=== PATIENT | male | born 1980 | race Caucasian/White ===

== ENCOUNTER 2018-09-15 13:22 | Emergency (ER) | payer BC ==
[2018-09-15 15:15] VITALS: BP 150/105
--- NOTE | 2018-09-15 15:52 | CRLUS ---
INDICATION: Left leg swelling TECHNIQUE: A compression venous ultrasound exam was performed of the left lower extremity using thapa-scale imaging, color Doppler and spectral Doppler analysis. FINDINGS: Sonographic imaging of the left lower extremity demonstrates normal compressibility and color Doppler venous blood flow within the common femoral vein, deep femoral vein, and the proximal greater saphenous vein. Within the thigh, the femoral vein is patent and compressible. At a lower level, the popliteal and posterior tibial veins also show normal compressibility and color Doppler venous blood flow. Limited imaging of the contralateral groin demonstrates a normal spectral waveform and color Doppler venous blood flow within the right common femoral vein. Mildly prominent left inguinal lymph node measuring 3.3 x 1.1 centimeter short axis with fatty hilum probably reactive. IMPRESSION: No evidence of deep vein thrombosis within the left lower extremity. Dictated by Nereida Cali MD @ Sep 15 2018 3:49PM Signed by Dr. Nereida Cali @ Sep 15 2018 3:51PM
--- NOTE | 2018-09-15 16:19 | EDM.PDOC ---
ED HPI GENERAL MEDICAL PROBLEM - General Chief Complaint: Lower Extremity Injury/Pain Stated Complaint: LEFT LEG SWELLING Time Seen by Provider: 09/15/18 13:25 Source of Information: Reports: Patient History Limitations: Reports: No Limitations - History of Present Illness INITIAL COMMENTS - FREE TEXT/NARRATIVE: 38 yo with hx of type 2 DM presents with concerns of left foot swelling Had chronic wound on the foot since may or june Two days ago noticed increased redness and swelling No fevers or chills Thought is may be gout but no history of this Does regularly see a doctor No hx of blood clot Left Knee Pain Score (Numeric/FACES): 3 - Related Data Allergies Allergy/AdvReac Type Severity Reaction Status Date / Time No Known Allergies Allergy Verified 09/15/18 13:39 Home Meds: Home Meds Ibuprofen [Motrin] 200 mg PO Q8H PRN 01/07/16 [History] Naproxen [Naprosyn] 500 mg PO BID PRN 01/07/16 [History] Doxycycline [Vibramycin] 100 mg PO BID 7 Days cap 09/15/18 [Rx] Past Medical History HEENT History: Reports: Otitis Media Cardiovascular History: Reports: Hypertension Psychiatric History: Reports: Anxiety, Depression Endocrine/Metabolic History: Reports: Diabetes, Type II Social & Family History - Tobacco Use Smoking Status *Q: Heavy Tobacco Smoker Years of Tobacco use: 22 Packs/Tins Daily: 1 - Recreational Drug Use Recreational Drug Use: No Review of Systems - Review of Systems Review Of Systems: See Below Constitutional: Reports: No Symptoms Eyes: Reports: No Symptoms Ears: Reports: No Symptoms Nose: Reports: No Symptoms Mouth/Throat: Reports: No Symptoms Respiratory: Reports: No Symptoms Cardiovascular: Reports: No Symptoms GI/Abdominal: Reports: No Symptoms Genitourinary: Reports: No Symptoms Musculoskeletal: Reports: Foot Pain Skin: Reports: Wound Neurological: Reports: No Symptoms Psychiatric: Reports: No Symptoms ED EXAM, GENERAL - Physical Exam Exam: See Below Course - Vital Signs Last Recorded V/S: Last Vital Signs Temp 36.8 C 09/15/18 13:45 Pulse 119 H 09/15/18 13:45 Resp 14 09/15/18 13:45 BP 150/105 H 09/15/18 13:45 Pulse Ox 97 09/15/18 13:45 - Orders/Labs/Meds Labs: Laboratory Tests 09/15/18 Range/Units 15:59 Sodium 134 L (140-148) mmol/L Potassium 4.1 (3.6-5.2) mmol/L Chloride 99 L (100-108) mmol/L Carbon Dioxide 28 (21-32) mmol/L Anion Gap 11.1 (5.0-14.0) mmol/L BUN 17 (7-18) mg/dL Creatinine 1.3 (0.8-1.3) mg/dL Est Cr Clr Drug Dosing 82.91 mL/min Estimated GFR (MDRD) > 60 (>60) Glucose 284 H (74-106) mg/dL Calcium 9.0 (8.5-10.1) mg/dL Triglycerides 192 H (15-150) mg/dL Cholesterol 277 H (0-200) mg/dL LDL Cholesterol Direct 188 H (0-100) mg/dL HDL Cholesterol 45 (40-60) mg/dL Departure - Departure Time of Disposition: 15:44 Disposition: Home, Self-Care 01 Clinical Impression: Cellulitis Qualifiers: Site of cellulitis: extremity Site of cellulitis of extremity: toe Laterality: left Qualified Code(s): L03.032 - Cellulitis of left toe - Discharge Information Prescriptions: Doxycycline [Vibramycin] 100 mg PO BID 7 Days cap Instructions: Cellulitis, Adult Referrals: PCP,None [Primary Care Provider] - Forms: ED Department Discharge Additional Instructions: Please take the prescribed antibiotic. It is very important that you follow up with a primary doctor next week. We have placed a referral for you.
[2018-09-17 10:50] LABS: HEMOGLOBIN A1C 10.9 % (4.5-6.2)
== END 2018-09-15 16:35 | disposition home or self-care (01) ==
LOC: JP.ED 13:22
DX: L03.032 Cellulitis of left toe (principal); I10 Essential (primary) hypertension; F41.9 Anxiety disorder, unspecified; F32.9 Major depressive disorder, single episode, unspecified; E11.9 Type 2 diabetes mellitus without complications; F17.210 Nicotine dependence, cigarettes, uncomplicated; Z79.899 Other long term (current) drug therapy
CPT/HCPCS: 36415; 80048; 80061; 83036; 93971-LT; 99284-25

== ENCOUNTER 2018-12-07 12:32 | Emergency (ER) | payer BC ==
[2018-12-07] MEDS ORDERED: Sodium Chloride 0.9% 10 ML Syringe FLUSH PRN (12:35)
[2018-12-07] MEDS ORDERED: Heparin Sodium 5,000 Units/ML Vial IVPUSH ONE ×2 (12:38→12:50)
[2018-12-07] MEDS ORDERED: Clopidogrel 75 MG Tab PO ONE (12:38)
[2018-12-07] MEDS ORDERED: Aspirin 81 MG Tab.Chew PO ONE (12:39)
[2018-12-07] MEDS ORDERED: Nitroglycerin/D5W 25 MG/250 ML BOTTLE IV SCH (13:00)
[2018-12-07] MEDS: Nitroglycerin 0.4 MG Tab.SL SL PRN ×2 (13:07→13:10)
[2018-12-07 13:13] VITALS: BP 158/99
--- NOTE | 2018-12-07 13:14 | EDM.PDOC ---
ED HPI GENERAL MEDICAL PROBLEM - General Chief Complaint: Cardiovascular Problem Stated Complaint: HEART ISSUES Time Seen by Provider: 12/07/18 12:32 Source of Information: Reports: Patient, RN History Limitations: Reports: No Limitations - History of Present Illness INITIAL COMMENTS - FREE TEXT/NARRATIVE: 38-year-old gentleman presents from the outpatient cardiac rehabilitation department for an outpatient stress test. Patient was seen by his primary care provider for vague left arm discomfort since evening and shortness of breath along with decreased exercise tolerance. Patient had a stress test today. Patient had EKG changes in the inferior lateral leads. Patient had some shortness of breath symptoms and decreased tolerance of activity during the stress test. The internal medicine physician read the stress test as ejection fracture of 38% and lateral inferior likely trans-mural infarct involving the apex. Patient was recently diagnosed with elevated blood sugar, elevated cholesterol and hypertension. He does have a fairly extensive cardiac history his father had coronary disease and heart failure. His uncles also had coronary disease before the diarrhea is mostly older than age of 60s. Onset: Today, Sudden - Related Data Allergies Allergy/AdvReac Type Severity Reaction Status Date / Time No Known Allergies Allergy Verified 12/07/18 12:36 Home Meds: Home Meds Escitalopram [Lexapro] 1 tab PO DAILY 12/05/18 [History] Lisinopril 1 tab PO DAILY 12/05/18 [History] metFORMIN [Glucophage] 2 tab PO BID 12/05/18 [History] Cyclobenzaprine [Flexeril] 10 mg PO Q8HR PRN 12/07/18 [History] Past Medical History HEENT History: Reports: Otitis Media Cardiovascular History: Reports: Hypertension Psychiatric History: Reports: Anxiety, Depression Endocrine/Metabolic History: Reports: Diabetes, Type II Social & Family History - Tobacco Use Smoking Status *Q: Current Every Day Smoker Years of Tobacco use: 20 Packs/Tins Daily: 1 ED ROS GENERAL - Review of Systems Review Of Systems: See Below Respiratory: Reports: Shortness of Breath ED EXAM, GENERAL - Physical Exam Exam: See Below Exam Limited By: No Limitations General Appearance: Alert, WD/WN, No Apparent Distress, Anxious Eye Exam: Bilateral Eye: EOMI, PERRL Ears: Normal External Exam, Normal Canal, Hearing Grossly Normal, Normal TMs Nose: Normal Inspection, Normal Mucosa, No Blood Throat/Mouth: Normal Inspection, Normal Lips, Normal Teeth, Normal Gums, Normal Oropharynx, Normal Voice, No Airway Compromise Head: Atraumatic, Normocephalic Neck: Normal Inspection, Supple, Non-Tender, Full Range of Motion Respiratory/Chest: No Respiratory Distress, Lungs Clear, Normal Breath Sounds, Chest Non-Tender Cardiovascular: Normal Peripheral Pulses, Regular Rate, Rhythm GI/Abdominal: Normal Bowel Sounds, Soft, Non-Tender (Male) Exam: No Hernia, Normal Inspection, Normal Prostate, Circumcised Neurological: Alert, Oriented, CN II-XII Intact, Normal Cognition, Normal Gait, Normal Reflexes, No Motor/Sensory Deficits Psychiatric: Normal Mood, Anxious Lymphatic: No Adenopathy EKG INTERPRETATION EKG Date: 12/07/18 Time: 12:42 Rhythm: NSR [place]: Normal (STEMI Called and transfer arranged to [facility]) P-Wave: Present QRS: Normal ST-T: Elevated QT: Prolonged Comparison: NA - No Prior EKG Course - Vital Signs Last Recorded V/S: Last Vital Signs Temp 36.4 C 12/07/18 12:44 Pulse 126 H 12/07/18 13:12 Resp 13 12/07/18 13:12 BP 158/99 H 12/07/18 13:12 Pulse Ox 96 12/07/18 13:12 - Orders/Labs/Meds Orders: Active Orders 24 hr Category Date Time Status EKG Documentation Completion [RC] ASDIRECTED Care 12/07/18 12:36 Active Peripheral IV Care [RC] . DIRECTED Care 12/07/18 12:35 Active PTT,PARTIAL THROMBOPLSTIN TIME [COAG] Stat Lab 12/07/18 13:28 Ordered Heparin Sodium/D5W [Heparin 25,000 Units in D5W 500 ML] Med 12/07/18 13:30 Ordered 25,000 units in 500 ml IV TITRATE Nitroglycerin [Nitrostat] Med 12/07/18 12:37 Active 0.4 mg SL Q5M PRN Nitroglycerin/D5W [Nitroglycerin 25 MG/D5W 250 ML] Med 12/07/18 13:00 Active 25 mg in 250 ml IV TITRATE Sodium Chloride 0.9% [Saline Flush] Med 12/07/18 12:35 Active 10 ml FLUSH ASDIRECTED PRN Peripheral IV Insertion Adult [OM.PC] Urgent Oth 12/07/18 12:35 Ordered EKG 12 Lead [EK] Stat Ther 12/07/18 12:35 Ordered Medication Orders Nitroglycerin/Dextrose (Nitroglycerin 25 Mg/D5w 250 Ml) 25 mg in 250 mls @ 6 mls/hr IV TITRATE JOAQUIN; Protocol Last Admin: 12/07/18 13:09 Dose: 10 mcg/min, 6 mls/hr Heparin Sodium/Dextrose (Heparin 25,000 Units In D5w 500 Ml) 25,000 units in 500 mls @ 24 mls/hr IV TITRATE JOAQUIN; Protocol Last Admin: 12/07/18 13:33 Dose: 1,200 units/hr, 24 mls/hr Nitroglycerin (Nitrostat) 0.4 mg SL Q5M PRN PRN Reason: Chest Pain Last Admin: 12/07/18 13:10 Dose: 0.4 mg Admin: 12/07/18 13:07 Dose: 0.4 mg Sodium Chloride (Saline Flush) 10 ml FLUSH ASDIRECTED PRN PRN Reason: Keep Vein Open Last Admin: 12/07/18 12:38 Dose: 10 ml Labs: Laboratory Tests 12/07/18 12/07/18 Range/Units 12:52 12:52 WBC 12.0 H (4.5-11.0) K/uL RBC 5.11 (4.30-5.90) M/uL Hgb 13.9 (12.0-15.0) g/dL Hct 42.7 (40.0-54.0) % MCV 84 (80-98) fL MCH 27 (27-31) pg MCHC 33 (32-36) % Plt Count 441 H (150-400) K/uL Neut % (Auto) 72 H (36-66) % Lymph % (Auto) 16 L (24-44) % [place] % (Auto) 10 H (2-6) % Eos % (Auto) 2 (2-4) % Baso % (Auto) 0 (0-1) % Sodium 135 L (140-148) mmol/L Potassium 4.3 (3.6-5.2) mmol/L Chloride 100 (100-108) mmol/L Carbon Dioxide 27 (21-32) mmol/L Anion Gap 12.3 (5.0-14.0) mmol/L BUN 24 H (7-18) mg/dL Creatinine 1.7 H (0.8-1.3) mg/dL Est Cr Clr Drug Dosing TNP Estimated GFR (MDRD) 45 L (>60) Glucose 320 H (74-106) mg/dL Calcium 9.7 (8.5-10.1) mg/dL Total Bilirubin 0.2 (0.2-1.0) mg/dL AST 24 (15-37) U/L ALT 29 (12-78) U/L Alkaline Phosphatase 125 H (46-116) U/L Total Protein 7.2 (6.4-8.2) g/dL Albumin 2.1 L (3.4-5.0) g/dL Globulin 5.1 H (2.3-3.5) g/dL Albumin/Globulin Ratio 0.4 L (1.2-2.2) Lipase 135 (73-393) U/L Meds: Medications Generic Name Dose Route Start Last Admin Trade Name Freq PRN Reason Stop Dose Admin Nitroglycerin/Dextrose 25 mg in 250 mls @ 6 mls/hr 12/07/18 13:00 12/07/18 13 :09 Nitroglycerin 25 Mg/D5w 250 Ml IV 10 mcg/min TITRATE JOAQUIN 6 mls/hr Administration Protocol 10 MCG/MIN Heparin Sodium/Dextrose 25,000 units in 500 mls @ 24 mls/hr 12/07/18 13:30 13:33 Heparin 25,000 Units In D5w 500 Ml IV 1,200 units/hr TITRATE JOAQUIN 24 mls/hr Administration Protocol 1,200 UNITS/HR Nitroglycerin 0.4 mg 12/07/18 12:37 12/07/18 13:10 Nitrostat SL 0.4 mg Q5M PRN Administration Chest Pain Sodium Chloride 10 ml 12/07/18 12:35 12/07/18 12:38 Saline Flush FLUSH 10 ml ASDIRECTED PRN Administration Keep Vein Open Discontinued Medications Generic Name Dose Route Start Last Admin Trade Name Freq PRN Reason Stop Dose Admin Aspirin 324 mg 12/07/18 12:39 12/07/18 12:52 Aspirin PO 12/07/18 12:40 324 mg ONETIME ONE Administration Clopidogrel Bisulfate 600 mg 12/07/18 12:38 12/07/18 12:53 Plavix PO 12/07/18 12:39 600 mg ONETIME ONE Administration Heparin Sodium (Porcine) 5,000 units 12/07/18 12:38 Heparin Sodium IVPUSH 12/07/18 12:39 ONETIME ONE Heparin Sodium (Porcine) 5,000 units 12/07/18 12:50 12/07/18 12:54 Heparin Sodium IVPUSH 12/07/18 12:51 5,000 units ONETIME ONE Administration Heparin Sodium/Dextrose Confirm 12/07/18 13:29 Heparin 25,000 Units In D5w 500 Ml Administered 12/07/18 13:30 Dose 500 mls @ as directed .ROUTE .STK-MED ONE Ondansetron HCl 4 mg 12/07/18 13:34 Zofran IVPUSH 12/07/18 13:35 ONETIME ONE - Re-Assessments/Exams Free Text/Narrative Re-Assessment/Exam: Patient updated and educated on why the nursing staff transferred to the ER for further evaluation. IV access an EKG was requested he has ST segment elevation in lead 2 and aVF reversal of the T-wave in 3 elevation also noted in 5 V6. I also reviewed patient's stress test tracing. Patient has a new right bundle branch block aVR. 12/07/18 12:35 EKG was looked at. Troponin was elevated at 6.3. I called the STEMI and contacted the cardiology group at [facility] to arrange transfer at 1:05 this afternoon. Patient and male significant other was updated regarding findings and transferred. Patient be transferred via ALS. Patient was given all initial interventions include Plavix, aspirin, heparin bolus, the remainder laboratory studies are completed. Nitro Gtt and Heparin gtt ordered. 12/07/18 13:16 Patient mentioned when he had contrast dye to evaluate his eye he had significant nausea after the contrast. Laboratory studies are significant for renal insufficiency, elevated blood sugar, troponin is elevated, PTT is added on to laboratory studies are drawn. 12/07/18 13:35 Departure - Departure Time of Disposition: 13:26 Disposition: DC/Tfer to Acute Hospital 02 Reason for Transfer *Q: Primary PCI Indicated (To Cardiac Office Support Associate) Clinical Impression: Acute myocardial infarction Referrals: PCP,None [Primary Care Provider] - - My Orders Last 24 Hours: My Active Orders 12/07/18 12:35 Peripheral IV Care [RC] . DIRECTED Sodium Chloride 0.9% [Saline Flush] 10 ml FLUSH ASDIRECTED PRN Peripheral IV Insertion Adult [OM.PC] Urgent EKG 12 Lead [EK] Stat 12/07/18 12:36 EKG Documentation Completion [RC] ASDIRECTED 12/07/18 12:37 Nitroglycerin [Nitrostat] 0.4 mg SL Q5M PRN 12/07/18 13:00 Nitroglycerin/D5W [Nitroglycerin 25 MG/D5W 250 ML] 25 mg in 250 ml IV TITRATE 12/07/18 13:28 PTT,PARTIAL THROMBOPLSTIN TIME [COAG] Stat 12/07/18 13:30 Heparin Sodium/D5W [Heparin 25,000 Units in D5W 500 ML] 25,000 units in 500 ml IV TITRATE - Assessment/Plan Last 24 Hours: My Active Orders 12/07/18 12:35 Peripheral IV Care [RC] . DIRECTED Sodium Chloride 0.9% [Saline Flush] 10 ml FLUSH ASDIRECTED PRN Peripheral IV Insertion Adult [OM.PC] Urgent EKG 12 Lead [EK] Stat 12/07/18 12:36 EKG Documentation Completion [RC] ASDIRECTED 12/07/18 12:37 Nitroglycerin [Nitrostat] 0.4 mg SL Q5M PRN 12/07/18 13:00 Nitroglycerin/D5W [Nitroglycerin 25 MG/D5W 250 ML] 25 mg in 250 ml IV TITRATE 12/07/18 13:28 PTT,PARTIAL THROMBOPLSTIN TIME [COAG] Stat 12/07/18 13:30 Heparin Sodium/D5W [Heparin 25,000 Units in D5W 500 ML] 25,000 units in 500 ml IV TITRATE
[2018-12-07] MEDS ORDERED: Heparin Sodium/D5W 500 ML ONE (13:29)
[2018-12-07] MEDS ORDERED: Heparin Sodium/D5W 25,000 UNITS/500 ML BAG IV SCH (13:30)
[2018-12-07] MEDS ORDERED: Ondansetron 4 MG/2 ML SDV IVPUSH ONE (13:34)
== END 2018-12-07 13:51 ==
LOC: JP.ED 12:32
DX: I21.9 Acute myocardial infarction, unspecified (principal); I10 Essential (primary) hypertension; F41.9 Anxiety disorder, unspecified; F32.9 Major depressive disorder, single episode, unspecified; E11.9 Type 2 diabetes mellitus without complications; Z79.84 Long term (current) use of oral hypoglycemic drugs; Z79.899 Other long term (current) drug therapy
CPT/HCPCS: 36415; 80053; 83690; 85025; 85730; 93005; 96365; 96375; 96376; 99285; A9270; J1644; J2405; J3490

== ENCOUNTER 2018-12-24 02:26 | Emergency (ER) | payer BC ==
[2018-12-24] MEDS ORDERED: Ketorolac 60 MG/2 ML SDV IM ONE (03:17)
--- NOTE | 2018-12-24 03:21 | EDM.PDOC ---
ED HPI GENERAL MEDICAL PROBLEM - General Chief Complaint: Cardiovascular Problem Stated Complaint: SHOOTING PAIN IN BACK Time Seen by Provider: 12/24/18 03:07 Source of Information: Reports: Patient, Old Records, RN Notes Reviewed History Limitations: Reports: No Limitations - History of Present Illness INITIAL COMMENTS - FREE TEXT/NARRATIVE: 38-year-old gentleman presents emergency department today complaint of pain in his back that radiates to the chest been going on for 2 days he has a history of myocardial infarction 2 weeks ago, he states this pain feels different than his myocardial infarction the pain is located left side it does improve with pressure point, no nausea or vomiting does not feel short of breath however the pain does get worse with a deep breath Treatments LANGUAGE THERAPIST: Reports: Acetaminophen left shoulder Pain Score (Numeric/FACES): 8 - Related Data Allergies Allergy/AdvReac Type Severity Reaction Status Date / Time No Known Allergies Allergy Verified 12/24/18 02:36 Home Meds: Home Meds Cyclobenzaprine [Flexeril] 10 mg PO Q8HR PRN 12/07/18 [History] Apixaban [Eliquis] 5 mg PO DAILY 12/24/18 [History] Aspirin 81 mg PO DAILY 12/24/18 [History] ClonazePAM [KlonoPIN] 0.25 mg PO BID 12/24/18 [History] Insulin Aspart [NovoLOG] 8 units SUBCUT ASDIRECTED 12/24/18 [History] Insulin Glarg,Human.Rec.Analog [Lantus Solostar] 30 units SUBCUT DAILY 12/24/18 [History] Isosorbide Mononitrate [Imdur] 60 mg PO DAILY 12/24/18 [History] Levofloxacin 750 mg PO ASDIRECTED 12/24/18 [History] Lisinopril 5 mg PO DAILY 12/24/18 [History] Metoprolol Succinate [Toprol XL] 25 mg PO DAILY 12/24/18 [History] Spironolactone [Aldactone] 25 mg PO DAILY 12/24/18 [History] atorvaSTATin Calcium [Atorvastatin Calcium] 80 mg PO BEDTIME 12/24/18 [History] buPROPion [buPROPion XL] 150 mg PO DAILY 12/24/18 [History] Past Medical History HEENT History: Reports: Impaired Vision, Otitis Media Cardiovascular History: Reports: CAD, Heart Failure, Hypertension, [place] Psychiatric History: Reports: Anxiety, Depression Endocrine/Metabolic History: Reports: Diabetes, Type II Hematologic History: Reports: Anticoagulation Therapy - Infectious Disease History Infectious Disease History: Reports: Chicken Pox Social & Family History - Tobacco Use Smoking Status *Q: Former Smoker Used Tobacco, but Quit: Yes Month/Year Tobacco Last Used: november 2018 - Recreational Drug Use Recreational Drug Use: No ED ROS GENERAL - Review of Systems Review Of Systems: See Below Constitutional: Reports: No Symptoms HEENT: Reports: No Symptoms Respiratory: Reports: Other (Pain with a deep breath) Cardiovascular: Reports: Chest Pain GI/Abdominal: Reports: No Symptoms : Reports: No Symptoms Musculoskeletal: Reports: Back Pain Skin: Reports: No Symptoms Neurological: Reports: No Symptoms ED EXAM, GENERAL - Physical Exam Exam: See Below Exam Limited By: No Limitations General Appearance: Alert, Mild Distress Neck: Normal Inspection, Supple, Non-Tender, Full Range of Motion Respiratory/Chest: No Respiratory Distress, Lungs Clear, Normal Breath Sounds, No Accessory Muscle Use, Other (Thoracic pain T4 level greatest left side of the back paraspinal) Cardiovascular: Regular Rate, Rhythm, No Murmur GI/Abdominal: Soft, Non-Tender Course - Vital Signs Last Recorded V/S: Last Vital Signs Temp 96.7 F 12/24/18 02:56 Pulse 91 12/24/18 02:56 Resp 22 H 12/24/18 02:56 BP 138/92 H 12/24/18 02:56 Pulse Ox 97 12/24/18 02:56 - Orders/Labs/Meds Orders: Active Orders 24 hr Category Date Time Status Cardiac Monitoring [RC] .As Directed Care 12/24/18 03:16 Active EKG Documentation Completion [RC] ASDIRECTED Care 12/24/18 03:17 Active ESR [SEDIMENTATION RATE MANUAL] [HEME] Stat Lab 12/24/18 03:18 Ordered Aspirin Med 12/24/18 04:26 Once 324 mg PO ONETIME ONE Nitroglycerin [Nitro-Bid 2%] Med 12/24/18 04:26 Once 1 gm TOP ONETIME ONE EKG 12 Lead [EK] Stat Ther 12/24/18 03:17 Ordered Medication Orders Aspirin (Aspirin) 324 mg PO ONETIME ONE Stop: 12/24/18 04:27 Nitroglycerin (Nitro-Bid 2%) 1 gm TOP ONETIME ONE Stop: 12/24/18 04:27 Labs: Laboratory Tests 12/24/18 12/24/18 12/24/18 Range/Units 03:25 03:25 03:25 WBC 9.6 (4.5-11.0) K/uL RBC 4.61 (4.30-5.90) M/uL Hgb 12.8 (12.0-15.0) g/dL Hct 39.2 L (40.0-54.0) % MCV 85 (80-98) fL MCH 28 (27-31) pg MCHC 33 (32-36) % Plt Count 533 H (150-400) K/uL Neut % (Auto) 57 (36-66) % Lymph % (Auto) 29 (24-44) % [place] % (Auto) 10 H (2-6) % Eos % (Auto) 4 (2-4) % Baso % (Auto) 1 (0-1) % D-Dimer, Quantitative 123 (0.0-400.0) ng/mL Sodium 142 (140-148) mmol/L Potassium 4.2 (3.6-5.2) mmol/L Chloride 106 (100-108) mmol/L Carbon Dioxide 26 (21-32) mmol/L Anion Gap 9.8 (5.0-14.0) mmol/L BUN 32 H (7-18) mg/dL Creatinine 1.7 H (0.8-1.3) mg/dL Est Cr Clr Drug Dosing 63.40 mL/min Estimated GFR (MDRD) 45 L (>60) Glucose 151 H (74-106) mg/dL Calcium 8.9 (8.5-10.1) mg/dL Total Bilirubin 0.1 L (0.2-1.0) mg/dL AST 34 (15-37) U/L ALT 44 (12-78) U/L Alkaline Phosphatase 146 H (46-116) U/L Troponin I 0.759 H* (0.000-0.056) ng/mL C-Reactive Protein (0.0-0.3) mg/dL Total Protein 6.6 (6.4-8.2) g/dL Albumin 2.0 L (3.4-5.0) g/dL Globulin 4.6 H (2.3-3.5) g/dL Albumin/Globulin Ratio 0.4 L (1.2-2.2) 12/24/18 Range/Units 03:25 WBC (4.5-11.0) K/uL RBC (4.30-5.90) M/uL Hgb (12.0-15.0) g/dL Hct (40.0-54.0) % MCV (80-98) fL MCH (27-31) pg MCHC (32-36) % Plt Count (150-400) K/uL Neut % (Auto) (36-66) % Lymph % (Auto) (24-44) % [place] % (Auto) (2-6) % Eos % (Auto) (2-4) % Baso % (Auto) (0-1) % D-Dimer, Quantitative (0.0-400.0) ng/mL Sodium (140-148) mmol/L Potassium (3.6-5.2) mmol/L Chloride (100-108) mmol/L Carbon Dioxide (21-32) mmol/L Anion Gap (5.0-14.0) mmol/L BUN (7-18) mg/dL Creatinine (0.8-1.3) mg/dL Est Cr Clr Drug Dosing mL/min Estimated GFR (MDRD) (>60) Glucose (74-106) mg/dL Calcium (8.5-10.1) mg/dL Total Bilirubin (0.2-1.0) mg/dL AST (15-37) U/L ALT (12-78) U/L Alkaline Phosphatase (46-116) U/L Troponin I (0.000-0.056) ng/mL C-Reactive Protein 1.70 H (0.0-0.3) mg/dL Total Protein (6.4-8.2) g/dL Albumin (3.4-5.0) g/dL Globulin (2.3-3.5) g/dL Albumin/Globulin Ratio (1.2-2.2) Meds: Medications Generic Name Dose Route Start Last Admin Trade Name Freq PRN Reason Stop Dose Admin Aspirin 324 mg 12/24/18 04:26 Aspirin PO 12/24/18 04:27 ONETIME ONE Nitroglycerin 1 gm 12/24/18 04:26 Nitro-Bid 2% TOP 12/24/18 04:27 ONETIME ONE Discontinued Medications Generic Name Dose Route Start Last Admin Trade Name Freq PRN Reason Stop Dose Admin Ketorolac Tromethamine 60 mg 12/24/18 03:17 12/24/18 03:27 Toradol IM 12/24/18 03:18 60 mg ONETIME ONE Administration Departure - Departure Time of Disposition: 04:32 Disposition: DC/Tfer to Acute Hospital 02 Reason for Transfer *Q: Primary PCI Indicated Condition: Fair Clinical Impression: Non-ST elevated myocardial infarction Referrals: PCP,None [Primary Care Provider] - Forms: ED Department Discharge - My Orders Last 24 Hours: My Active Orders 12/24/18 03:16 Cardiac Monitoring [RC] .As Directed 12/24/18 03:17 EKG Documentation Completion [RC] ASDIRECTED EKG 12 Lead [EK] Stat 12/24/18 03:18 ESR [SEDIMENTATION RATE MANUAL] [HEME] Stat 12/24/18 04:26 Aspirin 324 mg PO ONETIME ONE Nitroglycerin [Nitro-Bid 2%] 1 gm TOP ONETIME ONE - Assessment/Plan Last 24 Hours: My Active Orders 12/24/18 03:16 Cardiac Monitoring [RC] .As Directed 12/24/18 03:17 EKG Documentation Completion [RC] ASDIRECTED EKG 12 Lead [EK] Stat 12/24/18 03:18 ESR [SEDIMENTATION RATE MANUAL] [HEME] Stat 12/24/18 04:26 Aspirin 324 mg PO ONETIME ONE Nitroglycerin [Nitro-Bid 2%] 1 gm TOP ONETIME ONE Plan: Assessment Acuity = acute Site and laterality = non-ST elevation myocardial infarction complicated patient with known history coronary artery disease as well as diabetes mellitus type 2 insulin-dependent Etiology = probable underlying coronary artery disease Manifestations = back pain Location of injury = Home Lab values = CBC unremarkable, d-dimer is negative creatinine elevated 1.7 consistent chronic L fair state G IIIB troponin elevated 0.759 concern for non- ST elevation myocardial infarction chest x-ray shows no acute process EKG demonstrates sinus rhythm. Inversions to [address] elevations or depressions appreciated prior EKG from [address] elevation Plan Called discussed case with Dr. Cummings hospitalist on-call at [facility] 4:25 kindly accepted the patient transport he'll be transported via EMS ground, aspirin was given in the emergency department 325 mg he did take his [place] today therefore no heparin was initiated. Nitro paste was applied point tenderness in his back. This note was dictated using [employer] voice recognition software please call with any questions on syntax or grammar.
--- NOTE | 2018-12-24 04:11 | CRLCR ---
INDICATION: Chest pain TECHNIQUE: Chest radiograph 3 views COMPARISON: None FINDINGS: Mediastinum: The mediastinum is normal in appearance. Mild cardiomegaly is present. Lung: Minimal left basilar atelectasis is present with trace bilateral pleural effusions. No pneumothorax is identified. IMPRESSIONS: 1. Mild cardiomegaly is present. 2. Minimal left basilar atelectasis is present with trace bilateral pleural effusions. Dictated by Lucio Mak MD @ 12/24/2018 4:09:14 AM Dictated by: Lucio Mak MD @ 12/24/2018 04:09:18 (Electronically Signed)
[2018-12-24] MEDS ORDERED: Aspirin 81 MG Tab.Chew PO ONE (04:26)
[2018-12-24] MEDS ORDERED: Nitroglycerin 2% Oint 1 GM UD Packet TOP ONE (04:26)
[2018-12-24] MEDS ORDERED: Nitroglycerin 2% Oint 1 GM UD Packet ONE (04:28)
[2018-12-24] MEDS ORDERED: Aspirin 81 MG Tab.Chew ONE (04:28)
[2018-12-24 04:38] VITALS: BP 127/87
[2018-12-24] MEDS ORDERED: LORazepam 2 MG/ML SDV IVPUSH ONE (04:39)
== END 2018-12-24 05:08 ==
LOC: JP.ED 02:26
DX: I21.4 Non-ST elevation (NSTEMI) myocardial infarction (principal); I11.0 Hypertensive heart disease with heart failure; I50.9 Heart failure, unspecified; I25.10 Atherosclerotic heart disease of native coronary artery without angina pectoris; I25.2 Old myocardial infarction; E11.9 Type 2 diabetes mellitus without complications; F41.9 Anxiety disorder, unspecified; F32.9 Major depressive disorder, single episode, unspecified; Z79.899 Other long term (current) drug therapy; Z79.82 Long term (current) use of aspirin; Z79.4 Long term (current) use of insulin; Z87.891 Personal history of nicotine dependence
CPT/HCPCS: 36415; 71046; 80053; 84484; 85025; 85379; 85651; 86140; 93005; 96372; 96374; 99284; A9270; J1885; J2060

== ENCOUNTER 2019-05-30 03:30 | Emergency (ER) | payer BC ==
--- NOTE | 2019-05-30 04:22 | EDM.PDOC ---
ED HPI GENERAL MEDICAL PROBLEM - General Chief Complaint: Wound Recheck Stated Complaint: BLEEDING FROM SURGERY Time Seen by Provider: 05/30/19 04:13 Source of Information: Reports: Patient History Limitations: Reports: No Limitations - History of Present Illness INITIAL COMMENTS - FREE TEXT/NARRATIVE: pt had a pacemaker placed 2 weeks ago. He is on elequist and plavix. He had some swelling in his pacemaker pocket. He had a pressure dressing on and when he took that off he noted the swellin. He has noted drainage from the pacemaker pocket in the last 2-3 days. 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) - Related Data Allergies Allergy/AdvReac Type Severity Reaction Status Date / Time No Known Allergies Allergy Verified 05/30/19 03:50 Home Meds: Home Meds Apixaban [Eliquis] 5 mg PO BID 12/24/18 [History] ClonazePAM [KlonoPIN] 0.25 mg PO BID 12/24/18 [History] Insulin Aspart [NovoLOG] 8 units SUBCUT TIDMEALS 12/24/18 [History] Insulin Glarg,Human.Rec.Analog [Lantus Solostar] 30 units SUBCUT DAILY 12/24/18 [History] Lisinopril 5 mg PO DAILY 12/24/18 [History] Metoprolol Succinate [Toprol XL] 100 mg PO DAILY 12/24/18 [History] Spironolactone [Aldactone] 25 mg PO DAILY 12/24/18 [History] atorvaSTATin Calcium [Atorvastatin Calcium] 80 mg PO BEDTIME 12/24/18 [History] buPROPion [buPROPion XL] 150 mg PO DAILY 12/24/18 [History] Clopidogrel Bisulfate [Clopidogrel] 1 tab PO DAILY 05/30/19 [History] Furosemide [Lasix] 10 - 20 mg PO BID 05/30/19 [History] cephALEXin [Cephalexin] 500 mg PO TID 05/30/19 [History] Past Medical History HEENT History: Reports: Impaired Vision, Otitis Media Cardiovascular History: Reports: Arrhythmia, CAD, Heart Failure, High Cholesterol, Hypertension, [place] Neurological History: Reports: Neuropathy, Diabetic Psychiatric History: Reports: Anxiety, Depression Endocrine/Metabolic History: Reports: Diabetes, Type II, Obesity/BMI 30+ Hematologic History: Reports: Anticoagulation Therapy - Infectious Disease History Infectious Disease History: Reports: Chicken Pox - Past Surgical History Cardiovascular Surgical History: Reports: Pacer Social & Family History - Tobacco Use Smoking Status *Q: Former Smoker Used Tobacco, but Quit: Yes Month/Year Tobacco Last Used: 12/06/2018 - Caffeine Use Caffeine Use: Reports: Coffee, Soda - Alcohol Use Days Per Week of Alcohol Use: 1 Number of Drinks Per Day: 2 Total Drinks Per Week: 2 - Recreational Drug Use Recreational Drug Use: No ED ROS GENERAL - Review of Systems Review Of Systems: See Below Constitutional: Reports: No Symptoms HEENT: Reports: No Symptoms Respiratory: Reports: No Symptoms Cardiovascular: Reports: Other ( swelling in the pacemaker pocker/ ) Endocrine: Reports: No Symptoms GI/Abdominal: Reports: No Symptoms : Reports: No Symptoms Musculoskeletal: Reports: No Symptoms Skin: Reports: No Symptoms Neurological: Reports: No Symptoms Psychiatric: Reports: No Symptoms Hematologic/Lymphatic: Reports: No Symptoms ED EXAM, SKIN/RASH Exam: See Below Text/Narrative:: pt is concerned that he has bloody drainage coming from a very small hol in his pacemaker pocket. Exam Limited By: No Limitations General Appearance: Alert, No Apparent Distress, Anxious Ears: Normal External Exam Nose: Normal Inspection Throat/Mouth: Normal Inspection Head: Atraumatic Neck: Normal Inspection Respiratory/Chest: No Respiratory Distress Cardiovascular: Other (pt has a pacemaker and there is some bruising around the pocket. There is a very small hole where there is blood draining from the the incisional site. This looks like a hematoma which has liquified. ) GI/Abdominal: Soft, Non-Tender (Male) Exam: Deferred Rectal (Males) Exam: Deferred Back Exam: Normal Inspection Extremities: Normal Inspection Neurological: Alert, Oriented, Normal Cognition Course - Vital Signs Last Recorded V/S: Last Vital Signs Temp 36.0 C 05/30/19 03:57 Pulse 82 05/30/19 04:34 Resp 13 05/30/19 04:34 BP 143/92 H 05/30/19 04:34 Pulse Ox 97 05/30/19 04:34 - Re-Assessments/Exams Free Text/Narrative Re-Assessment/Exam: 05/30/19 04:42 The old blood was expressed and it was cultured. A fair amount of old blood was expressed. The area around the pocket is not hot and does not look red. 05/30/19 04:43 Departure - Departure Time of Disposition: 04:30 Disposition: Home, Self-Care 01 Condition: Fair Clinical Impression: Pacemaker complications - Discharge Information Instructions: Hematoma, [id number] Referrals: Luis E Prieto MD [Primary Care Provider] - Forms: ED Department Discharge Care Plan Goals: keep area covered and change the dressing frequently, continue the keflex. The drainage was cultured and this will be completed in 48 hours, keep appt in [place] with the surgeon on Monday.
[2019-05-30 04:43] VITALS: BP 143/92; PULSE 82
== END 2019-05-30 04:49 | disposition home or self-care (01) ==
LOC: JP.ED 03:30
DX: T82.897A Other specified complication of cardiac prosthetic devices, implants and grafts, initial encounter (principal); E11.40 Type 2 diabetes mellitus with diabetic neuropathy, unspecified; Z79.4 Long term (current) use of insulin; Z79.899 Other long term (current) drug therapy; Z87.891 Personal history of nicotine dependence
CPT/HCPCS: 87070; 87077; 87186; 87205; 99283

== ENCOUNTER 2019-08-10 01:57 | Emergency (ER) | payer BC ==
[2019-08-10 02:16] VITALS: BP 124/91; PULSE 102
--- NOTE | 2019-08-10 02:33 | EDM.PDOC ---
ED HPI GENERAL MEDICAL PROBLEM - General Chief Complaint: Diabetic Complaint Stated Complaint: DIABETIC KETOACIDOSIS Time Seen by Provider: 08/10/19 02:00 Source of Information: Reports: Patient History Limitations: Reports: No Limitations - History of Present Illness INITIAL COMMENTS - FREE TEXT/NARRATIVE: 38-year-old male with type 2 diabetes, forgot to take his insulin last night and woke up with a malaise, a lot of burping and abdominal discomfort. He started researching online after taking his glucose level which was 350, and started becoming concerned that he was in "ketoacidosis". He called the nurse hotline and they recommended he come in to be checked. He has no shortness of breath, his last hemoglobin A1c was 12. He did take Humalog before coming in. Onset: Unknown/Unsure Associated Symptoms: Reports: Other (Increased abdominal gas, irregularity, distention and intermittent constipation) abd pain Pain Score (Numeric/FACES): 5 - Related Data Allergies Allergy/AdvReac Type Severity Reaction Status Date / Time No Known Allergies Allergy Verified 08/10/19 02:08 Home Meds: Home Meds Apixaban [Eliquis] 5 mg PO BID 12/24/18 [History] Insulin Aspart [NovoLOG] 5 - 8 units SUBCUT TIDMEALS 12/24/18 [History] Insulin Glarg,Human.Rec.Analog [Lantus Solostar] 30 units SUBCUT DAILY 12/24/18 [History] Metoprolol Succinate [Toprol XL] 100 mg PO DAILY 12/24/18 [History] Spironolactone [Aldactone] 25 mg PO DAILY 12/24/18 [History] atorvaSTATin Calcium [Atorvastatin Calcium] 80 mg PO BEDTIME 12/24/18 [History] buPROPion [buPROPion XL] 150 mg PO DAILY 12/24/18 [History] lisinopriL [Lisinopril] 5 mg PO DAILY 12/24/18 [History] Clopidogrel Bisulfate [Clopidogrel] 1 tab PO DAILY 05/30/19 [History] Furosemide [Lasix] 20 mg PO BID 05/30/19 [History] Ozempic 0.25 mg SUBCUT WEEKLY 08/10/19 [History] Past Medical History HEENT History: Reports: Impaired Vision, Otitis Media Cardiovascular History: Reports: Arrhythmia, CAD, Heart Failure, High Cholesterol, Hypertension, [place], Pacemaker Genitourinary History: Reports: Chronic Renal Insuffiency Neurological History: Reports: Neuropathy, Diabetic Psychiatric History: Reports: Anxiety, Depression Endocrine/Metabolic History: Reports: Diabetes, Type II, Obesity/BMI 30+ Hematologic History: Reports: Anticoagulation Therapy - Infectious Disease History Infectious Disease History: Reports: Chicken Pox - Past Surgical History Cardiovascular Surgical History: Reports: Pacer Social & Family History - Tobacco Use Smoking Status *Q: Former Smoker Used Tobacco, but Quit: Yes Month/Year Tobacco Last Used: november 2018 - Caffeine Use Caffeine Use: Reports: Coffee - Recreational Drug Use Recreational Drug Use: No ED ROS GENERAL - Review of Systems Review Of Systems: See Below Constitutional: Reports: Malaise. Denies: Fever, Chills HEENT: Reports: No Symptoms Respiratory: Denies: Shortness of Breath Cardiovascular: Denies: Chest Pain GI/Abdominal: Reports: Constipation, Diarrhea. Denies: Abdominal Pain, Hematemesis Skin: Reports: No Symptoms Free Text/Narrative/Comment: Increased thirst ED EXAM GENERAL NO PERIP PULSE - Physical Exam Exam: See Below Exam Limited By: No Limitations General Appearance: Alert, No Apparent Distress Eye Exam: Bilateral Eye: Normal Inspection Respiratory/Chest: No Respiratory Distress, Lungs Clear Cardiovascular: Regular Rate, Rhythm GI/Abdominal: Normal Bowel Sounds, Soft Extremities: No Pedal Edema Neurological: Alert, Oriented Course - Vital Signs Last Recorded V/S: Last Vital Signs Temp 97.5 F 08/10/19 02:14 Pulse 102 H 08/10/19 02:14 Resp 16 08/10/19 02:14 BP 124/91 H 08/10/19 02:14 Pulse Ox 97 08/10/19 02:14 - Re-Assessments/Exams Free Text/Narrative Re-Assessment/Exam: 08/10/19 02:33 A [id number] glucose was obtained. 08/10/19 02:37 Glucose was 233, patient was reassured. 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 Sepsis Event Note - Evaluation Sepsis Screening Result: No Definite Risk - Focused Exam Vital Signs: Vital Signs Temp Pulse Resp BP Pulse Ox 08/10/19 02:14 97.5 F 102 H 16 124/91 H 97 Date Exam was Performed: 08/10/19 Time Exam was Performed: 03:05
== END 2019-08-10 02:41 | disposition home or self-care (01) ==
LOC: JP.ED 01:57
DX: E11.65 Type 2 diabetes mellitus with hyperglycemia (principal); E11.40 Type 2 diabetes mellitus with diabetic neuropathy, unspecified; E66.9 Obesity, unspecified; I11.0 Hypertensive heart disease with heart failure; I50.9 Heart failure, unspecified; E78.00 Pure hypercholesterolemia, unspecified; F32.9 Major depressive disorder, single episode, unspecified; Z79.4 Long term (current) use of insulin; Z79.01 Long term (current) use of anticoagulants; Z79.899 Other long term (current) drug therapy; Z87.891 Personal history of nicotine dependence; Z68.35 Body mass index [BMI] 35.0-35.9, adult
CPT/HCPCS: 82962; 99284

== ENCOUNTER 2020-01-31 07:43 | Day surgery (SDC) | payer BC ==
[2020-01-31] MEDS ORDERED: Dextrose 5%-Lactated Ringers 1,000 ML IV SCH (07:55)
[2020-01-31] MEDS ORDERED: Propofol 200 MG/20 ML SDV ONE (09:07)
[2020-01-31] MEDS ORDERED: Midazolam 1 MG/ML 2 ML SDV ONE (09:08)
[2020-01-31] MEDS ORDERED: fentaNYL 100 MCG/2 ML SDV ONE (09:08)
[2020-01-31 11:02] VITALS: BP 101/73; PULSE 91
--- NOTE | 2020-02-06 10:44 | OR ---
DATE OF PROCEDURE: 01/31/2020 SURGEON: Jalen Richter MD PREOPERATIVE DIAGNOSIS: Epigastric pain. POSTOPERATIVE DIAGNOSES: 1. Epigastric pain associated with large gastric bezoar. 2. Moderate antral gastritis. OPERATIVE PROCEDURE: Esophagogastroduodenoscopy with biopsies of antrum for CLOtest. ANESTHESIA: IV sedation. INDICATION FOR PROCEDURE: This is a 39-year-old presenting with some ongoing problems with heartburn and epigastric discomfort along with nausea. He has quite extensive medical history for his age including type 2 diabetes mellitus with chronic kidney disease, some congestive heart failure, atrial fibrillation, combined systolic and diastolic heart failure as well as diabetic neuropathy associated with ulceration of the left great toe. His present BMI is 36.5. He recently had a myocardial infarction and there was revascularization along with implantable cardioverter-defibrillator placed, and the plan is to proceed with upper GI endoscopy with biopsies as indicated. Potential risks including bleeding and perforation were discussed, and the patient wishes to proceed. DETAILS OF PROCEDURE: The patient was taken to the operating room and placed in a left lateral decubitus position. IV sedation was administered, after which the upper GI endoscope was passed orally through the length of the esophagus and the stomach with retroflexion view of the fundus, and thereafter through the pyloric channel and into the proximal duodenum. Findings included normal hypopharynx, larynx, upper esophageal sphincter, esophageal body. There was a small hiatal hernia present but without much in the way of inflammation at the EG junction. No stricturing was noted there. Within the stomach, the striking finding was that of a large gastric bezoar. This was associated with some redness in the distal aspect of the stomach, particularly the antrum, but without erosions or ulcers. The pyloric channel and visualized portions of the duodenum were unremarkable. At this point, biopsies were obtained from the antrum and sent for CLOtest for H pylori. Minimal bleeding from the biopsy site was seen, and the procedure then concluded. The plan at this point will be to have the patient instructed on anti-bezoar diet, and we will start Zithromax 125 mg p.o. q. day to augment gastric emptying. We will see the patient back in 2 weeks. If he seems to be symptomatic, he will be good candidate for a proximal gastrectomy with Eber-en-Y gastric bypass, which would essentially be the same procedure, which would help for his diabetes as well as the entire metabolic syndrome and obviate the problem with what at this point is an obvious diabetic gastroparesis. We will see the patient back in 2 weeks for recheck. Jalen Richter MD /[id number]
== END 2020-01-31 11:32 | disposition home or self-care (01) ==
LOC: JP.SDS 07:43
PROVIDERS: ATTEND Surgery
DX: K29.70 Gastritis, unspecified, without bleeding (principal); T18.2XXA Foreign body in stomach, initial encounter; F41.9 Anxiety disorder, unspecified; B96.81 Helicobacter pylori [H. pylori] as the cause of diseases classified elsewhere; E11.22 Type 2 diabetes mellitus with diabetic chronic kidney disease; N18.9 Chronic kidney disease, unspecified; E66.9 Obesity, unspecified; I48.91 Unspecified atrial fibrillation; F17.200 Nicotine dependence, unspecified, uncomplicated; I50.40 Unspecified combined systolic (congestive) and diastolic (congestive) heart failure; I25.2 Old myocardial infarction; E11.40 Type 2 diabetes mellitus with diabetic neuropathy, unspecified; E11.622 Type 2 diabetes mellitus with other skin ulcer; L97.529 Non-pressure chronic ulcer of other part of left foot with unspecified severity; Z68.36 Body mass index [BMI] 36.0-36.9, adult; Z95.810 Presence of automatic (implantable) cardiac defibrillator
CPT/HCPCS: 43239; 87081; J2250; J2704; J3010; J7121

== ENCOUNTER 2020-05-12 07:15 | Inpatient (IN) | payer BC ==
[2020-05-12] MEDS ORDERED: cefOXitin 2 GM Vial ONE (07:16)
[2020-05-12] MEDS ORDERED: Ondansetron 4 MG/2 ML SDV ONE (09:28)
[2020-05-12] MEDS ORDERED: Dexamethasone 4 MG/ML SDV ONE (09:28)
[2020-05-12] MEDS ORDERED: Rocuronium 50 MG/5 ML Vial ONE (09:28)
[2020-05-12] MEDS ORDERED: Propofol 200 MG/20 ML SDV ONE (09:28)
[2020-05-12] MEDS ORDERED: Succinylcholine 200 MG/10 ML MDV ONE (09:28)
[2020-05-12] MEDS ORDERED: Glycopyrrolate 0.2 MG/ML 5 ML MDV ONE (09:28)
[2020-05-12] MEDS ORDERED: Neostigmine Methylsulfate 1 MG/ML 5 ML Syringe ONE (09:28)
[2020-05-12] MEDS ORDERED: fentaNYL 250 MCG/5 ML SDV ONE ×2 (09:28→11:00)
[2020-05-12] MEDS ORDERED: Acetaminophen 500 MG Tab PO ONE (09:45)
[2020-05-12] MEDS ORDERED: Celecoxib 200 MG Cap PO ONE (09:45)
[2020-05-12] MEDS ORDERED: Scopolamine 1.5 MG Transdermal Patch TOP SCH (09:45)
[2020-05-12] MEDS ORDERED: Ketamine 500 MG/5 ML MDV IV SCH (10:15)
[2020-05-12] MEDS ORDERED: Ketamine 50 MG in Sodium Chloride 0.9% 49.5 ML IV SCH (10:15)
[2020-05-12] MEDS ORDERED: Magnesium Sulfate 3.8 GM in Sodium Chloride 0.9% 100 ML IV SCH (10:15)
[2020-05-12] MEDS ORDERED: Dextrose 5%-Lactated Ringers 1,000 ML IV SCH ×2 (10:30→14:30)
[2020-05-12] MEDS ORDERED: cefOXitin 2 GM in Sodium Chloride 0.9% 50 ML IV ONE (11:00)
[2020-05-12] MEDS ORDERED: Phenylephrine 1% 10 MG/ML SDV ONE (11:24)
[2020-05-12] MEDS ORDERED: Lactated Ringers 1,000 ML ONE ×2 (11:53)
[2020-05-12] MEDS ORDERED: Cyclobenzaprine 10 MG Tab PO PRN (14:23)
[2020-05-12] MEDS ORDERED: Nitroglycerin 0.4 MG Tab.SL SL PRN (14:27)
[2020-05-12] MEDS ORDERED: Lactated Ringers 1,000 ML IV SCH (14:30)
[2020-05-12] MEDS ORDERED: Metoclopramide 10 MG/2 ML SDV IVPUSH PRN (15:00)
[2020-05-12] MEDS ORDERED: Ondansetron 4 MG/2 ML SDV IVPUSH PRN (15:00)
[2020-05-12] MEDS ORDERED: HYDROmorphone 1 MG/ML Syringe IV PRN (15:00)
[2020-05-12] MEDS ORDERED: Calcium Gluconate 10% 1 GM/10 ML SDV IVPUSH PRN (15:00)
[2020-05-12] MEDS ORDERED: HYDROmorphone 0.5 MG/0.5 ML Syringe IVPUSH PRN (15:00)
[2020-05-12] MEDS ORDERED: Labetalol 20 MG/4 ML Syringe IVPUSH PRN (15:00)
[2020-05-12] MEDS ORDERED: Glucagon,Human Recombinant 1 MG Vial IM PRN (15:00)
[2020-05-12] MEDS ORDERED: Acetaminophen 500 MG Tab PO PRN (15:00)
[2020-05-12] MEDS ORDERED: diphenhydrAMINE 50 MG/ML SDV IVPUSH PRN (15:00)
[2020-05-12] MEDS ORDERED: 50% Dextrose in Water 50 ML Syringe IVPUSH PRN (15:00)
[2020-05-12] MEDS ORDERED: hydrOXYzine HCL 100 MG/2 ML SDV IM PRN (15:00)
[2020-05-12] MEDS ORDERED: oxyCODONE 5 MG Tab PO PRN (15:00)
[2020-05-12] MEDS: MVI, Adult with Vitamin K 10 ML, Thiamine 200 MG, Chromium/Copper/Mang/Selen/Zn 1 ML in... IV SCH ×4 (16:00)
[2020-05-12] MEDS: Pantoprazole 40 MG Vial IVPUSH SCH (16:00)
[2020-05-12] MEDS: Acetaminophen 500 MG Tab PO SCH ×2 (16:00→23:25)
[2020-05-12] MEDS: cefOXitin 2 GM in Sodium Chloride 0.9% 50 ML IV SCH ×2 (16:01→23:23)
[2020-05-12] MEDS: Heparin Sodium 5,000 Units/ML Vial SUBCUT SCH (17:56)
[2020-05-12] MEDS: atorvaSTATin 20 MG Tab PO SCH (20:18)
[2020-05-12] MEDS: Metoprolol Tartrate 50 MG Tab PO SCH (20:18)
[2020-05-12] MEDS: buPROPion 100 MG Tab PO SCH (20:19)
[2020-05-12] MEDS ORDERED: Insulin Glargine,Human Rec. Analog 100 Units/ML 3 ML Pen SUBCUT ONE (21:00)
[2020-05-12] MEDS: Insulin Lispro 100 Unit/ML 3 ML KwikPen SUBCUT PRN (21:07)
[2020-05-13] MEDS ORDERED: Iopamidol 612 MG/ML 50 ML SDV PO ONE (03:18)
[2020-05-13] MEDS ORDERED: Sodium Polystyrene Sulfonate 15 GM/60 ML Susp 60 ML Bot PO ONE (05:02)
[2020-05-13] MEDS: cefOXitin 2 GM in Sodium Chloride 0.9% 50 ML IV SCH (05:22)
[2020-05-13] MEDS ORDERED: Albuterol 0.083% 2.5 MG/3 ML Neb Soln NEB SCH (05:30)
[2020-05-13] MEDS: Heparin Sodium 5,000 Units/ML Vial SUBCUT SCH ×2 (05:38→17:08)
[2020-05-13] MEDS ORDERED: Furosemide 40 MG/4 ML VIAL IVPUSH ONE (06:47)
[2020-05-13] MEDS ORDERED: Sodium Chloride 0.9% 500 ML IV ONE ×2 (06:47→10:40)
[2020-05-13] MEDS ORDERED: hydrOXYzine HCl 25 MG Tab PO PRN (07:29)
[2020-05-13] MEDS ORDERED: Ondansetron 4 MG Tab.DIS PO PRN (07:29)
[2020-05-13] MEDS: Acetaminophen 500 MG Tab PO SCH ×3 (07:47→23:42)
[2020-05-13] MEDS: Sodium Chloride 0.9% 1,000 ML IV SCH ×3 (07:53→23:40)
[2020-05-13] MEDS ORDERED: Insulin Glargine,Human Rec. Analog 100 Units/ML 3 ML Pen SUBCUT ONE (08:00)
[2020-05-13] MEDS: Metoprolol Tartrate 50 MG Tab PO SCH ×2 (08:39→20:39)
[2020-05-13] MEDS: buPROPion 100 MG Tab PO SCH ×2 (08:40→20:40)
[2020-05-13] MEDS: Isosorbide Mononitrate 30 MG Tab.ER PO SCH (08:40)
[2020-05-13] MEDS: SCOPOLAMINE PATCH CHECK TOP SCH (08:41)
[2020-05-13] MEDS: Magnesium Hydroxide 400 MG/5 ML Susp 30 ML Cup PO SCH ×2 (08:44→20:38)
[2020-05-13] MEDS: Furosemide 20 MG Tab PO SCH ×2 (08:44→13:37)
--- NOTE | 2020-05-13 09:37 | CR ---
UGI Limited HISTORY: Postbariatric surgery FINDINGS: Patient swallowed water-soluble contrast. Upright views of the abdomen show no evidence of extravasation or obstruction. There is a surgical drain in the left upper quadrant. IMPRESSION: Status post bariatric surgery No extravasation or obstruction seen
[2020-05-13] MEDS ORDERED: Insulin Lispro 100 Unit/ML 3 ML KwikPen SUBCUT ONE (11:00)
[2020-05-13] MEDS: Albuterol 0.083% 2.5 MG/3 ML Neb Soln NEB SCH ×4 (11:13→23:42)
--- NOTE | 2020-05-13 12:09 | PN ---
DATE OF SERVICE: 05/13/2020 SUBJECTIVE: Alli is postoperative day #1 following a partial gastrectomy. Labs this morning; WBC was 12.8, potassium 6.3. Dr. Richter was notified. He was given Kayexalate. His BNP was 539 on admission, this morning 589. Urine output 650. Alli was given stat normal saline at 500 mL to run over 30 minutes to be followed by Lasix 40 mg IV, and with a blood sugar of 315, he was given Lantus 20 units now. Temp max 99.3, blood pressure the last two were 147/92 and 173/93. REVIEW OF SYSTEMS: Denies any pain including dysphagia. Has been up, ambulating. Denies any headache, dizziness, or weakness. No chest pain, shortness of breath. He did start the step 1 diet and is having no difficulty with it. Remainder of review of systems negative for any pertinent positives and negatives. OBJECTIVE: GENERAL: Alli Lee is a pleasant 39-year-old male. He is in bed with the head of the bed elevated. VITAL SIGNS: TPR is 96.6, 94, 18, blood pressure 173/93. HEENT: Negative. Color good. HEART: Regular rate and rhythm. LUNGS: Clear. ABDOMEN: Dressing dry and intact. Abdominal binder is on. JORGE drain put out 160 mL of a light pink drainage. EXTREMITIES: Without peripheral edema. ASSESSMENT: Diagnostic laparoscopy with: 1. Partial gastrectomy with Eber-en-Y gastrojejunostomy. 2. Needle liver biopsy. 3. Small bowel resection. 4. Repair of paraesophageal hernia. 5. Excision of mediastinal lipoma. POSTOPERATIVE DIAGNOSES: 1. Diabetic gastroparesis refractory to medical management. 2. Immobile small bowel secondary to extra fatty infiltration of the small bowel mesentery. 3. Marked hepatomegaly. 4. Paraesophageal diaphragmatic hernia. 5. Mediastinal lipoma. 6. Date of procedure: 05/12/2020. Surgeon: Jalen Richter MD. PLAN: 1. Lantus 20 mg subcu now. 2. IV normal saline 500 mL bolus over 30 minutes. 3. Lasix 40 mg IV after the bolus of normal saline is in. 4. Change IV to normal saline 125 mL/hour. 5. Give Lantus 20 units at bedtime. 6. Milk of Magnesia 30 mL b.i.d. 7. Lasix 20 mg p.o. b.i.d. starting this morning. 8. Check BNP at [address] Richter with results. 9. Continue telemetry and continuous pulse ox. 10.Labs are already ordered for the morning. 11.We will evaluate p.r.n. or in a.m. Mulu Hernández PA-C /[id number]
[2020-05-13] MEDS: MVI, Adult with Vitamin K 10 ML, Thiamine 200 MG, Chromium/Copper/Mang/Selen/Zn 1 ML in... IV SCH ×4 (15:33)
[2020-05-13] MEDS: Pantoprazole 40 MG Vial IVPUSH SCH (15:34)
[2020-05-13] MEDS: Insulin Lispro 100 Unit/ML 3 ML KwikPen SUBCUT PRN ×2 (17:06→22:28)
--- NOTE | 2020-05-13 17:36 | OR ---
DATE OF PROCEDURE: 05/12/2020 SURGEON: Jalen Richter MD PREOPERATIVE DIAGNOSIS: Diabetic gastroparesis refractory to medical management. POSTOPERATIVE DIAGNOSES: 1. Diabetic gastroparesis refractory to medical management. 2. Immobile small bowel secondary to extreme thickening of the small bowel mesentery by fatty infiltration. 3. Marked hepatomegaly. 4. Paraesophageal diaphragmatic hernia. 5. Mediastinal lipoma. OPERATIVE PROCEDURES: Diagnostic laparoscopy with: 1. Partial gastrectomy with Eber-en-Y gastrojejunostomy (84475). 2. Lisandro-Cut needle liver biopsy (93112). 3. Small bowel resection (75542). 4. Repair of paraesophageal diaphragmatic hernia (93117). 5. Excision of mediastinal lipoma (64775). ANESTHESIA: General. TELLER HEAD: Mulu Hernández PA-C. INDICATIONS FOR PROCEDURE: This is a 39-year-old male presenting with significant diabetic gastroparesis. This has been refractory to prokinetic agents specifically Zithromax as well as a low residue diet, and a subsequent nuclear medicine scan showed abnormal gastric emptying. Given this, the patient is to undergo a high partial gastrectomy with Eber-en-Y reconstruction. One side effect of this would be he will have some weight loss and improvement in his diabetic status in addition to solving the problems with the diabetic gastroparesis. Potential risks including bleeding, infection, leaks from various GI tract closures, problems with bowel obstruction over time, as well as possibility of cardiopulmonary, septic, or hemorrhagic complications leading to were discussed, and the patient wishes to proceed. DETAILS OF PROCEDURE: The patient was taken to the operating room, and after general endotracheal anesthesia was induced, he was placed in a lithotomy position and the abdomen prepped and draped 15 cm inferior and 5 cm left of the xiphoid process. A transverse incision was made and the peritoneal cavity entered under direct vision with an Optiview trocar and peritoneal cavity was inflated to 15 mmHg with CO2. Laparoscope was reinserted, no underlying trocar insertion site injuries were seen. Following this, 5 additional trocars were placed across the upper and mid abdomen and bilateral transversus abdominis plane blocks were placed. The liver was noted to be markedly enlarged and fatty infiltrated. Lisandro-Cut needle biopsies were obtained from left lobe of liver, minimal bleeding from the biopsy sites was controlled with electrocautery. At this point, the omentum was divided in the midline up to the level of transverse colon. This allowed identification of the small bowel to the ligament of Treitz. The small bowel was then traced out 150 cm, where it was divided with a NICANOR stapler. The small bowel mesentery was noted to be extremely fat laden making the small bowel quite immobile, and therefore, it was felt a resection of portion of the end of the biliopancreatic limb would be helpful with regard to increase in the mobility of the jejunojejunostomy to allow come up into the subdiaphragmatic area with minimal tension. Given this, a roughly 10 cm of the small bowel was resected and then division of the underlying mesentery with Harmonic scalpel, and then small bowel was then divided with the NICANOR stapler and the specimen delivered from the field. The small bowel was then traced out additional 200 cm, where the [id number] enteroenterostomy was accomplished with internal firing of the Endo-NICANOR 60 mm stapler. Common opening was then closed transversely with the same stapler, angles anastomosed, and mesenteric defect approximated with 0 Ethibond stitch along with fibrin sealant. Divided Eber limb was then from the mesentery for a few additional centimeters, where we came up to the area of the gastroesophageal junction without tension. Upon elevation of the liver, the patient was noted to have a moderate-sized paraesophageal hernia containing some perigastric fat as well as a tongue of omentum. This was reduced and peritoneum overlying was incised and reflected downward. The diaphragmatic defect was then approximated with 0 Ethibond sutures, reinforced with PTFE pledgets. During the course of the dissection, a mediastinal lipoma was encountered and this was excised as well to facilitate more adequate crural repair. At this point, the stomach was divided roughly 2 fingerbreadths below the esophagogastric junction after entering the lesser sac. Upon division of the lesser omentum at that level, initial firings as well as subsequent firing with NICANOR black loads due to some being extremely thickened in that area, the remainder of the proximal gastric division was done with a NICANOR purple loads up to and through the angle of [facility]. Some stomach along the edges of this was resected to provide a more even staple line and partial gastrectomy specimen sent as a separate specimen. At this point, the anvil of a 25 mm EEA stapler was attached to [place] sump type tube. The latter was brought down through the mouth, taken out through the small opening in the gastric pouch, allowing the anvil likewise to be pulled down to within the gastric pouch. The divided end of Eber limb was then opened and main body of the EEA stapler passed several centimeters into the lumen of small bowel, brought up the anvil, united with it, thus creating the gastrojejunostomy. Upon removal of the stapler, double donuts of mucosa were noted within it. Small bowel was closed off with a vascular staple line. Gastrojejunostomy was reinforced with some 3-0 Vicryl seromuscular stitch along with fibrin sealant. Leak test was accomplished with injection of 120 mL of air in the gastric pouch while it was submerged with a cefoxitin-containing saline solution. No leaks were identified. A single Elbert-Murphy drain was then placed adjacent to the gastrojejunostomy, brought up into the splenic fossa. The trocars were then sequentially removed, the peritoneal cavity deflated. Incisions were closed with some 4-0 Vicryl skin stitch and drains fixed with some 4-0 Vicryl stitch as well. Dressing was applied. The patient was taken to the recovery room in satisfactory condition. Physician assurance assistant, Mulu Hernández, played an essential role in assisting in this case, helping to position the patient, retract structures as needed, as well as suturing and cutting sutures when indicated. Her presence improved patient safety and decreased the operative time. Jalen Richter MD /[id number]
[2020-05-13] MEDS: atorvaSTATin 20 MG Tab PO SCH (20:40)
[2020-05-13] MEDS: Insulin Glargine,Human Rec. Analog 100 Units/ML 3 ML Pen SUBCUT SCH (22:27)
[2020-05-14] MEDS: Albuterol 0.083% 2.5 MG/3 ML Neb Soln NEB SCH ×6 (03:54→22:19)
[2020-05-14] MEDS ORDERED: Insulin Lispro 100 Unit/ML 3 ML KwikPen SUBCUT PRN (06:44)
[2020-05-14] MEDS: Heparin Sodium 5,000 Units/ML Vial SUBCUT SCH ×2 (07:32→18:54)
[2020-05-14] MEDS: Lactated Ringers 1,000 ML IV SCH (07:43)
[2020-05-14] MEDS: Acetaminophen 500 MG Tab PO SCH ×2 (07:46→16:24)
[2020-05-14] MEDS: Furosemide 20 MG Tab PO SCH ×2 (07:46→13:32)
--- NOTE | 2020-05-14 08:33 | PN ---
DATE OF SERVICE: 05/14/2020 SUBJECTIVE: Alli's blood sugar was 129. He did receive Lantus 20 units twice daily. Creatinine is 2.3 and his BNP is 267. He has shown improvement, up ambulating. Pain is controlled per energy protocol. Vital signs have been stable. He has been afebrile. He has no other concerns or questions today. OBJECTIVE: GENERAL: Alli Lee is a pleasant 39-year-old male. He is alert and orientated. VITAL SIGNS: TPR is 96.7, 93, 20, blood pressure 137/80. HEENT: Negative. NECK: Supple. HEART: Regular rate and rhythm. LUNGS: Clear. ABDOMEN: Dressings dry and intact. JORGE drain is intact and put out 165 mL of a light pink drainage. EXTREMITIES: Without peripheral edema. ASSESSMENT: Diagnostic laparoscopy with: 1. Partial gastrectomy with Eber-en-Y gastrojejunostomy. 2. Lisandro-Cut needle liver biopsy. 3. Small bowel resection. 4. Repair of paraesophageal diaphragmatic hernia. 5. Excision of mediastinal lipoma. POSTOPERATIVE DIAGNOSES: 1. Diabetic gastroparesis refractory to medical management. 2. Immobile small bowel secondary to extreme thickening of the small bowel mesentery by fatty infiltration. 3. Marked hepatomegaly. 4. Paraesophageal diaphragmatic hernia. 5. Mediastinal lipoma. PLAN: 1. Discontinue normal saline IV solution. 2. Lactated Ringer's IV 125 mL per hour. 3. May shower. 4. Lisinopril 20 mg p.o. daily. 5. Continue telemetry. 6. Lantus 20 units at bedtime. 7. Communication order written. 8. To call Dr. Jalen Richter if blood sugar is less than 160 before giving the Lantus. Continue use of incentive spirometer and ambulation. 9. We will evaluate p.r.n. or in a.m. Mulu Hernández PA-C /[id number]
[2020-05-14] MEDS ORDERED: Cyanocobalamin (Vitamin B12) 1,000 MCG/ML SDV IM ONE (09:00)
[2020-05-14] MEDS: buPROPion 100 MG Tab PO SCH ×2 (09:20→22:19)
[2020-05-14] MEDS: Metoprolol Tartrate 50 MG Tab PO SCH ×2 (09:20→22:19)
[2020-05-14] MEDS: Isosorbide Mononitrate 30 MG Tab.ER PO SCH (09:21)
[2020-05-14] MEDS: Magnesium Hydroxide 400 MG/5 ML Susp 30 ML Cup PO SCH ×2 (09:21→22:14)
[2020-05-14] MEDS: SCOPOLAMINE PATCH CHECK TOP SCH (09:21)
[2020-05-14] MEDS: Lisinopril 20 MG Tab PO SCH (12:28)
[2020-05-14] MEDS: MVI, Adult with Vitamin K 10 ML, Thiamine 200 MG, Chromium/Copper/Mang/Selen/Zn 1 ML in... IV SCH ×4 (16:29)
[2020-05-14] MEDS: Pantoprazole 40 MG Vial IVPUSH SCH (16:30)
[2020-05-14] MEDS ORDERED: Glucagon,Human Recombinant 1 MG Vial IM PRN ×2 (21:38→22:05)
[2020-05-14] MEDS ORDERED: 50% Dextrose in Water 50 ML Syringe IVPUSH PRN ×2 (21:38→22:05)
[2020-05-14] MEDS ORDERED: Insulin Glargine,Human Rec. Analog 100 Units/ML 3 ML Pen SUBCUT ONE (22:06)
[2020-05-14] MEDS: Insulin Glargine,Human Rec. Analog 100 Units/ML 3 ML Pen SUBCUT SCH (22:14)
[2020-05-14] MEDS: atorvaSTATin 20 MG Tab PO SCH (22:19)
[2020-05-15] MEDS: Lactated Ringers 1,000 ML IV SCH (00:40)
[2020-05-15] MEDS: Acetaminophen 500 MG Tab PO SCH ×2 (01:08→08:37)
[2020-05-15] MEDS: Albuterol 0.083% 2.5 MG/3 ML Neb Soln NEB SCH ×3 (04:29→10:56)
[2020-05-15] MEDS: Heparin Sodium 5,000 Units/ML Vial SUBCUT SCH (06:15)
[2020-05-15] MEDS: Magnesium Hydroxide 400 MG/5 ML Susp 30 ML Cup PO SCH (08:35)
[2020-05-15] MEDS: Lisinopril 20 MG Tab PO SCH (08:37)
[2020-05-15] MEDS: buPROPion 100 MG Tab PO SCH (08:37)
[2020-05-15] MEDS: Metoprolol Tartrate 50 MG Tab PO SCH (08:38)
[2020-05-15] MEDS: Furosemide 20 MG Tab PO SCH (08:38)
[2020-05-15] MEDS: Isosorbide Mononitrate 30 MG Tab.ER PO SCH (08:38)
--- NOTE | 2020-05-15 10:03 | DISCH ---
ADMISSION DIAGNOSES: 1. Morbid obesity, BMI 36. 2. Coronary artery disease with myocardial infarction and angioplasty and stenting. 3. Type 2 diabetes. 4. Chronic systolic and diastolic heart failure. 5. Paroxysmal atrial fibrillation. 6. Pacemaker placement. 7. Chronic kidney disease. 8. Essential hypertension. 9. Anxiety. 10.Peripheral neuropathy secondary to diabetes. DISCHARGE DIAGNOSES: Diagnostic laparoscopy with: 1. Partial gastrectomy with Eber-en-Y gastrojejunostomy. 2. Lisandro-Cut needle liver biopsy. 3. Small-bowel resection. 4. Repair of paraesophageal diaphragmatic hernia. 5. Excision of mediastinal lipoma. POSTOPERATIVE DIAGNOSES: 1. Diabetic gastroparesis refractory to medical management. 2. Immobile small-bowel secondary to extreme thickening of the small-bowel mesentery by fatty infiltration. 3. Marked hepatomegaly. 4. Paraesophageal diaphragmatic hernia. 5. Mediastinal lipoma. Date of procedure, 05/12/2020. Surgeon: Jalen Richter MD. HISTORY: Alli Lee is a pleasant 39-year-old male presenting with significant diabetic gastroparesis. This has been refractory to prokinetic agents, especially Zithromax, as well as a low residue diet, and subsequent nuclear medicine scan showed abnormal gastric emptying. After preoperative evaluation and discussion of possible risks and possible complications, he wished to proceed with surgical procedure. HOSPITAL COURSE: Alli had his surgery on 05/12/2020. His potassium elevated to 6.3. He was given Kayexalate. BNP was 539 on admission and increased slightly to 589. Urine output was 650. He was given a bolus of 500 mL and additional Lasix 40 mg IV. Blood sugar was 315. He was given Lantus 20 units in the a.m. Temperature max 99, blood pressure was 147/92 and 173/93. He was started on milk of magnesia to eliminate the Kayexalate and continued with telemetry and continuous pulse ox. On postoperative day 2, blood sugars were normalizing; it was 129. He received Lantus 20 units twice yesterday. Creatinine 2.3. BNP is 267. He has shown improvement. Pain is controlled with Tylenol. Lisinopril 20 mg was started. On 05/15/2020, pain was controlled with Tylenol. BNP 218. Potassium 4.8. Oral intake 1045. Urine output 3575. JORGE drain put out 180 mL. Afebrile. Vital signs were stable with the exception of his diastolic ran between 85 and 95. Alli was stable and had adequate education. Activity good. Pain was well managed that he was able to be discharged to home. PHYSICAL EXAMINATION: GENERAL: Alli Lee is a pleasant 39-year-old male. VITAL SIGNS: Height is 6 feet 1 inch, weight is 273 pounds. BMI is 36. TPR at 0400, 97, 91, 18; blood pressure 144/95. HEENT: Negative. NECK: Supple. HEART: Regular rate and rhythm. LUNGS: Clear. ABDOMEN: Dressings dry and intact. JORGE drain will be removed prior to discharge. Abdominal binder is on. EXTREMITIES: Without peripheral edema. DISPOSITION: Discharged to home. CONDITION: Stable and improving. HOME MEDICATIONS: 1. Zofran ODT 4 mg every 4 hours p.r.n. nausea and vomiting, #30. 2. Tylenol 1000 mg every 8 hours p.r.n. pain. 3. Eliquis 5 mg p.o. b.i.d., start 05/18/2020. 4. Atorvastatin calcium 80 mg p.o. daily, may resume, may crush and split. 5. Bupropion 100 mg p.o. b.i.d., may split or crush. 6. Clopidogrel 75 mg p.o. daily, may split and crush. 7. Furosemide, Lasix 20 mg p.o. b.i.d., may split and crush. 8. Imdur 60 mg tablet ER take intact. 9. Lisinopril 20 mg p.o. daily, may split and crush. 10.Metoprolol tartrate, Lopressor 100 mg p.o. b.i.d., may split and crush. 11.Nitroglycerin 0.4 mg sublingual, take as directed. 12.Discontinue Lantus. 13.Do not take Celebrex due to kidney function. 14.Discontinue spironolactone because of kidney function. FOLLOWUP APPOINTMENT: Mulu Hernández PA-C, 05/18/2020 at 10 a.m., come at 9:30 a.m. for BMP, CBC, and magnesium. DIET: Step 2 gastric bypass diet without cereal for 2 weeks until 05/26/2020, 65 g of protein, and 64 ounces of fluid. ACTIVITY: No lifting greater than 10 pounds for 2 weeks. Other activity: Walk inside your home. Driving: Do not drive for 1 week. May shower. WOUND INCISION CARE: Keep site clean and dry. Wear abdominal binder for 2 weeks and then as tolerated. Notify provider for any fever, increased pain, swelling, redness, drainage, nausea, or vomiting. SPECIAL INSTRUCTIONS: 1. Use incentive spirometer 10 times every hour while awake for 1 week. 2. Check blood sugars 4 times a day. 3. Keep track of protein and water intake. 4. Start Eliquis on 05/18/2020. 5. Hold Trulicity until after your clinic appointment on Monday, and we will discuss at that time. 6. Do not take Celebrex because of kidneys. 7. Stop spironolactone. 8. If blood sugar is over 200, call Dr. Richter or Mulu. 9. No Lantus. /[id number]
[2020-05-15 10:59] VITALS: BP 135/94; PULSE 86
[2020-05-15] MEDS ORDERED: Insulin Glargine,Human Rec. Analog 100 Units/ML 3 ML Pen SUBCUT ONE (21:39)
== END 2020-05-15 13:20 | disposition home or self-care (01) | DRG 405 ==
LOC: EDSTATUS 07:15 → JP.MS 09:00 → EEVIPCON 09:00 → JP.SDS 09:21 → JP.MS 13:25
PROVIDERS: ADMIT Surgery; ATTEND Surgery
PROC: 0DB64ZZ Excision of Stomach, Percutaneous Endoscopic Approach (ICD-10-PCS; principal; 2020-05-12)
PROC: 0DB84ZZ Excision of Small Intestine, Percutaneous Endoscopic Approach (ICD-10-PCS; 2020-05-12)
PROC: 0FB24ZX Excision of Left Lobe Liver, Percutaneous Endoscopic Approach, Diagnostic (ICD-10-PCS; 2020-05-12)
PROC: 0JB63ZZ Excision of Chest Subcutaneous Tissue and Fascia, Percutaneous Approach (ICD-10-PCS; 2020-05-12)
DX: E66.01 Morbid (severe) obesity due to excess calories (principal); E11.43 Type 2 diabetes mellitus with diabetic autonomic (poly)neuropathy; K31.84 Gastroparesis; K44.9 Diaphragmatic hernia without obstruction or gangrene; I50.42 Chronic combined systolic (congestive) and diastolic (congestive) heart failure; E11.42 Type 2 diabetes mellitus with diabetic polyneuropathy; D17.1 Benign lipomatous neoplasm of skin and subcutaneous tissue of trunk; K76.0 Fatty (change of) liver, not elsewhere classified; I13.0 Hypertensive heart and chronic kidney disease with heart failure and stage 1 through stage 4 chronic kidney disease, or unspecified chronic kidney disease; E11.22 Type 2 diabetes mellitus with diabetic chronic kidney disease; N18.9 Chronic kidney disease, unspecified; I48.0 Paroxysmal atrial fibrillation; Z95.0 Presence of cardiac pacemaker; I25.2 Old myocardial infarction; Z79.899 Other long term (current) drug therapy; Z79.4 Long term (current) use of insulin; Z68.36 Body mass index [BMI] 36.0-36.9, adult
CPT/HCPCS: 36415; 74240; 74240-26; 80048; 80053; 82962; 83735; 83880; 84100; 85025; 85027; 86850; 86900; 86901; 88304; 88305; 88307; 88313; 94640; 94762; A9270-GY; C9113; J0171; J0330; J0694; J1100; J1644; J1815; J1815-GY; J1940; J2370; J2405; J2704; J2710; J2795; J3010; J3410; J3411; J3420; J3475; J3490; J7030; J7040; J7050; J7120; J7121; Q9967

== ENCOUNTER 2020-11-03 13:35 | Emergency (ER) | payer BC ==
[2020-11-03 13:51] VITALS: BP 105/64; PULSE 65
--- NOTE | 2020-11-03 14:30 | EDM.PDOC ---
ED HPI GENERAL MEDICAL PROBLEM - General Chief Complaint: General Stated Complaint: WEAK/TIRED Time Seen by Provider: 11/03/20 13:55 Source of Information: Reports: Patient, Family History Limitations: Reports: No Limitations - History of Present Illness INITIAL COMMENTS - FREE TEXT/NARRATIVE: 40-year-old male with a history of diabetes, gastroparesis with eventual partial gastrectomy, NM and renal failure presents with 2 weeks of progressive fatigue. He went into the clinic and was evaluated, found to have a creatinine over 7 and a GFR of 9 so was sent to the emergency room for disposition. He has no shortness of breath, no pain, intermittent chills but no fever, no urinary symptoms such as dysuria, and no peripheral edema. His only complaint is weakness and lack of energy especially with activity. Onset: Gradual Duration: Week(s): (Symptoms have been worsening for at least 2 weeks) Location: Reports: Generalized Associated Symptoms: Reports: No Other Symptoms - Related Data Allergies Allergy/AdvReac Type Severity Reaction Status Date / Time No Known Allergies Allergy Verified 05/12/20 10:33 Home Meds: Home Meds Nitroglycerin 0.4 mg SL ASDIRECTED 01/28/20 [History] buPROPion [Wellbutrin] 100 mg PO BID 05/12/20 [History] Acetaminophen [Tylenol Extra Strength] 1,000 mg PO Q8H tablet 05/15/20 [Rx] Apixaban [Eliquis] 5 mg PO BID #0 05/15/20 [Rx] Furosemide [Lasix] 2 tab PO DAILY #0 05/15/20 [Rx] Isosorbide Mononitrate [Imdur] 60 mg PO DAILY #0 05/15/20 [Rx] Metoprolol Tartrate [Lopressor] 100 mg PO BID #0 05/15/20 [Rx] Ondansetron [Zofran ODT] 4 mg PO Q4H PRN #30 tab.dis 05/15/20 [Rx] atorvaSTATin Calcium [Atorvastatin Calcium] 80 mg PO DAILY #0 05/15/20 [Rx] lisinopriL [Lisinopril] 20 mg PO DAILY #0 05/15/20 [Rx] Past Medical History HEENT History: Reports: Impaired Vision, Otitis Media Cardiovascular History: Reports: Arrhythmia, CAD, Heart Failure, High Cholesterol, Hypertension, NM, Pacemaker Respiratory History: Reports: Pneumonia, Recurrent Gastrointestinal History: Reports: GERD Genitourinary History: Reports: Chronic Renal Insuffiency Neurological History: Reports: Neuropathy, Diabetic Psychiatric History: Reports: Anxiety, Depression Endocrine/Metabolic History: Reports: Diabetes, Type II, Obesity/BMI 30+ Hematologic History: Reports: Anticoagulation Therapy Dermatologic History: Reports: Cellulitis - Infectious Disease History Infectious Disease History: Reports: Chicken Pox - Past Surgical History HEENT Surgical History: Reports: Eye Surgery Cardiovascular Surgical History: Reports: Pacer, Percutaneous Transluminal Angioplasty, Other (See Below) Other Cardiovascular Surgeries/Procedures: icd GI Surgical History: Reports: Colonoscopy, EGD Endocrine Surgical History: Reports: None Neurological Surgical History: Reports: None Dermatological Surgical History: Reports: None Social & Family History - Family History Family Medical History: No Pertinent Family History - Tobacco Use Tobacco Use Status *Q: Never Tobacco User - Caffeine Use Caffeine Use: Reports: Coffee - Recreational Drug Use Recreational Drug Use: No ED ROS GENERAL - Review of Systems Review Of Systems: See Below Constitutional: Reports: Chills, Malaise, Decreased Appetite, Weight Loss. Denies: Fever HEENT: Reports: No Symptoms Respiratory: Reports: Shortness of Breath (Mild shortness of breath with activity but not at rest) Cardiovascular: Denies: Chest Pain, Palpitations Endocrine: Reports: Fatigue GI/Abdominal: Reports: Decreased Appetite. Denies: Diarrhea, Nausea, Vomiting : Reports: No Symptoms Musculoskeletal: Reports: No Symptoms Skin: Reports: No Symptoms Neurological: Reports: Weakness Psychiatric: Reports: No Symptoms ED EXAM, GENERAL - Physical Exam Exam: See Below Exam Limited By: No Limitations General Appearance: Alert, No Apparent Distress Eye Exam: Bilateral Eye: Normal Inspection (No jaundice) Head: Atraumatic Neck: Supple, Non-Tender Respiratory/Chest: Lungs Clear Cardiovascular: Regular Rate, Rhythm. No: Bradycardia, Tachycardia GI/Abdominal: Non-Tender Extremities: Normal Inspection. No: Pedal Edema Neurological: Alert, Oriented, No Motor/Sensory Deficits Psychiatric: Normal Affect, Normal Mood Skin Exam: Warm, Dry Course - Vital Signs Last Recorded V/S: Last Vital Signs Temp 97.7 F 11/03/20 14:01 Pulse 65 11/03/20 14:01 Resp 16 11/03/20 14:01 BP 105/64 11/03/20 14:01 Pulse Ox 100 11/03/20 14:01 - Orders/Labs/Meds Labs: Laboratory Tests 11/03/20 Range/Units 14:30 Urine Color Yellow (YELLOW) Urine Appearance Slightly cloudy A (CLEAR) Urine pH 5.0 (5.0-8.0) Ur Specific [place] 1.025 (1.008-1.030) Urine Protein 100 H (NEGATIVE) mg/dL Urine Glucose (UA) Negative (NEGATIVE) mg/dL Urine Ketones Negative (NEGATIVE) mg/dL Urine Occult Blood Negative (NEGATIVE) Urine Nitrite Negative (NEGATIVE) Urine Bilirubin Negative (NEGATIVE) Urine Urobilinogen 0.2 (0.2-1.0) EU/dL Ur Leukocyte Esterase Small H (NEGATIVE) Urine RBC Not seen (0-5) Urine WBC 0-5 (0-5) Ur Epithelial Cells Moderate Amorphous Sediment Moderate Urine Bacteria Moderate Urine Mucus Few - Re-Assessments/Exams Free Text/Narrative Re-Assessment/Exam: 11/03/20 14:28 UA was obtained but this patient needs to be aware of their is nephrology. Called to [facility] in [place], Dr. Dennison of the emergency department kindly accepted the patient for transfer. He is UA results will be sent when available, his is going to transfer him to [place] by private car. 11/03/20 16:21 UA showed proteinuria, otherwise no evidence of infection or inflammation. Results were sent to [facility]. Departure - Departure Time of Disposition: 14:55 Disposition: DC/Tfer to Other 70 Clinical Impression: Weakness generalized Renal failure, acute Qualifiers: Acute renal failure type: unspecified Qualified Code(s): N17.9 - Acute kidney failure, unspecified - Discharge Information Instructions: Acute Kidney Injury, Adult, Weakness, [id number] Referrals: Luis E Prieto MD [Primary Care Provider] - Forms: ED Department Discharge Care Plan Goals: Go directly to [facility] in [place] for admission, admit expected through the emergency department area without being seen in the emergency room. Sepsis Event Note (ED) - Evaluation Sepsis Screening Result: No Definite Risk - Focused Exam Vital Signs: Vital Signs Temp Pulse Resp BP Pulse Ox 11/03/20 14:01 97.7 F 65 16 105/64 100 11/03/20 13:50 97.7 F 65 16 105/64 100
== END 2020-11-03 14:56 | disposition other institution (70) ==
LOC: JP.ED 13:35
DX: N17.9 Acute kidney failure, unspecified (principal); I25.10 Atherosclerotic heart disease of native coronary artery without angina pectoris; E78.00 Pure hypercholesterolemia, unspecified; I13.0 Hypertensive heart and chronic kidney disease with heart failure and stage 1 through stage 4 chronic kidney disease, or unspecified chronic kidney disease; I50.9 Heart failure, unspecified; I25.2 Old myocardial infarction; N18.9 Chronic kidney disease, unspecified; E11.43 Type 2 diabetes mellitus with diabetic autonomic (poly)neuropathy; K31.84 Gastroparesis; E11.40 Type 2 diabetes mellitus with diabetic neuropathy, unspecified; E11.22 Type 2 diabetes mellitus with diabetic chronic kidney disease; E66.9 Obesity, unspecified; Z68.27 Body mass index [BMI] 27.0-27.9, adult; Z79.01 Long term (current) use of anticoagulants; Z79.899 Other long term (current) drug therapy
CPT/HCPCS: 81001; 99285

== ENCOUNTER 2022-02-13 02:28 | Emergency (ER) | payer BC, OTHER ==
[2022-02-13 02:41] VITALS: BP 172/98; PULSE 74
[2022-02-13] MEDS ORDERED: Lidocaine 4% Top Soln 50 ML Bottle TOP ONE (02:56)
== END 2022-02-13 03:59 | disposition home or self-care (01) ==
LOC: JP.ED 02:28
DX: H60.311 Diffuse otitis externa, right ear (principal); I25.10 Atherosclerotic heart disease of native coronary artery without angina pectoris; I11.0 Hypertensive heart disease with heart failure; I50.9 Heart failure, unspecified; E11.9 Type 2 diabetes mellitus without complications; E66.9 Obesity, unspecified; Z68.27 Body mass index [BMI] 27.0-27.9, adult; Z79.899 Other long term (current) drug therapy; Z87.891 Personal history of nicotine dependence
CPT/HCPCS: 99282; A9270

== ENCOUNTER 2023-05-01 22:02 | Emergency (ER) | payer OTHER ==
[2023-05-01 22:55] LABS: BASOPHILS ABSOLUTE AUTO 0.06 K/uL (0.00-0.10); BASOPHILS PERCENT AUTO 0.9 % (0.1-1.3); EOSINOPHILS ABSOLUTE AUTO 0.31 K/uL (0.00-0.40); EOSINOPHILS PERCENT AUTO 4.7 % (0.0-5.4); HEMATOCRIT 36.1 % (38.4-49.7); HEMOGLOBIN 11.8 g/dL (12.9-16.9); IMMATURE GRAN PERCENT AUTO 0.3 % (0.0-0.7); LYMPHOCYTES ABSOLUTE AUTO 1.79 K/uL (0.8-3.3); MEAN CORPUSCULAR HEMOGLOBIN 28.9 pg (31.6-35.5); MEAN CORPUSCULAR HGB CONC 32.7 g/dL (31.6-35.5); MEAN CORPUSCULAR VOLUME 88.3 fL (81.4-99.0); MONOCYTES ABSOLUTE AUTO 0.78 K/uL (0.20-0.90); MONOCYTES PERCENT AUTO 11.8 % (3.3-12.6); NEUTROPHILS ABSOLUTE AUTO 3.67 K/uL (1.0-7.6); NEUTROPHILS PERCENT AUTO 55.3 % (40.0-78.1); PLATELET COUNT,PLT 231 K/uL (130-375); RED BLOOD CELL COUNT 4.09 M/uL (4.14-5.76); WHITE BLOOD CELL COUNT,WBC 6.6 K/uL (3.2-11.0)
[2023-05-01 22:57] LABS: IMMATURE GRAN ABSOLUTE AUTO 0.02 K/uL (0.00-0.23)
[2023-05-01 23:20] LABS: A/G RATIO 0.8 (1.2-2.2); ALANINE AMINOTRANSFERASE,ALT 20 U/L (12-78); ALKALINE PHOSPHATASE 131 U/L (46-116); ANION GAP 10.9 mmol/L (5.0-14.0); ASPARTATE AMNIOTRANSFERASE,AST 12 U/L (15-37); BILIRUBIN TOTAL 0.4 mg/dL (0.2-1.0); BLOOD UREA NITROGEN,BUN 47 mg/dL (7-18); CALCIUM 7.9 mg/dL (8.5-10.1); CARBON DIOXIDE,CO2 25 mmol/L (21-32); CHLORIDE,CL 104 mmol/L (100-108); CREATININE 3.3 mg/dL (0.8-1.3); EST CRCL DRUG DOSING (CG) 31.35 mL/min; ESTIMATED GFR 23 mL/min (>60); GLUCOSE RANDOM 177 mg/dL (74-106); POTASSIUM,K 4.4 mmol/L (3.6-5.2); PRO B-TYPE NATRIUR PEPT,BNPPRO 3485 pg/mL (5-125); PROTEIN TOTAL,TP 6.7 g/dL (6.4-8.2); SODIUM,NA 140 mmol/L (140-148)
[2023-05-01] MEDS ORDERED: Furosemide 40 MG/4 ML VIAL IVPUSH ONE (23:39)
[2023-05-01] MEDS ORDERED: Sodium Chloride 0.9% 10 ML Syringe FLUSH PRN (23:40)
[2023-05-02 00:37] VITALS: PULSE 78
[2023-05-02 02:32] VITALS: BP 131/53
== END 2023-05-02 02:33 | disposition home or self-care (01) ==
LOC: JP.ED 22:02
DX: E87.70 Fluid overload, unspecified (principal); I25.10 Atherosclerotic heart disease of native coronary artery without angina pectoris; I13.0 Hypertensive heart and chronic kidney disease with heart failure and stage 1 through stage 4 chronic kidney disease, or unspecified chronic kidney disease; E11.22 Type 2 diabetes mellitus with diabetic chronic kidney disease; N18.9 Chronic kidney disease, unspecified; I50.9 Heart failure, unspecified; E78.00 Pure hypercholesterolemia, unspecified; E11.40 Type 2 diabetes mellitus with diabetic neuropathy, unspecified; E66.9 Obesity, unspecified; Z68.30 Body mass index [BMI] 30.0-30.9, adult; Z86.16 Personal history of COVID-19; Z79.01 Long term (current) use of anticoagulants; Z79.899 Other long term (current) drug therapy
CPT/HCPCS: 36415; 71046; 71046-26; 80053; 83735; 83880; 85025; 96374; 99284; 99285-25; J1940

== ENCOUNTER 2023-05-21 16:08 | Emergency (ER) | payer OTHER ==
[2023-05-21] MEDS: Sodium Chloride 0.9% 10 ML Syringe FLUSH PRN (17:27)
[2023-05-21 17:29] LABS: BASOPHILS ABSOLUTE AUTO 0.08 K/uL (0.00-0.10); BASOPHILS PERCENT AUTO 1.1 % (0.1-1.3); EOSINOPHILS ABSOLUTE AUTO 0.25 K/uL (0.00-0.40); EOSINOPHILS PERCENT AUTO 3.4 % (0.0-5.4); HEMATOCRIT 42.1 % (38.4-49.7); HEMOGLOBIN 13.7 g/dL (12.9-16.9); IMMATURE GRAN PERCENT AUTO 0.3 % (0.0-0.7); LYMPHOCYTES ABSOLUTE AUTO 1.48 K/uL (0.8-3.3); LYMPHOCYTES PERCENT AUTO 20.4 % (11.4-47.7); MEAN CORPUSCULAR HEMOGLOBIN 28.4 pg (31.6-35.5); MEAN CORPUSCULAR HGB CONC 32.5 g/dL (31.6-35.5); MEAN CORPUSCULAR VOLUME 87.2 fL (81.4-99.0); MONOCYTES ABSOLUTE AUTO 0.67 K/uL (0.20-0.90); MONOCYTES PERCENT AUTO 9.2 % (3.3-12.6); NEUTROPHILS ABSOLUTE AUTO 4.77 K/uL (1.0-7.6); NEUTROPHILS PERCENT AUTO 65.6 % (40.0-78.1); PLATELET COUNT,PLT 242 K/uL (130-375); RED BLOOD CELL COUNT 4.83 M/uL (4.14-5.76); WHITE BLOOD CELL COUNT,WBC 7.3 K/uL (3.2-11.0)
[2023-05-21 17:30] LABS: APPEARANCE,URINE CLEAR (CLEAR); BILIRUBIN,URINE NEGATIVE (NEGATIVE); COLOR,URINE YELLOW (YELLOW); GLUCOSE,URINE 500 mg/dL (NEGATIVE); KETONES,URINE NEGATIVE (NEGATIVE); LEUKOCYTE ESTERASE,URINE NEGATIVE (NEGATIVE); NITRITE,URINE NEGATIVE (NEGATIVE); OCCULT BLOOD,URINE MODERATE (NEGATIVE); PROTEIN,URINE >=300 mg/dL (NEGATIVE); UROBILINOGEN,URINE 0.2 EU/dL (0.2-1.0)
[2023-05-21 17:37] LABS: IMMATURE GRAN ABSOLUTE AUTO 0.02 K/uL (0.00-0.23)
[2023-05-21 17:54] LABS: CALCIUM 8.5 mg/dL (8.5-10.1); EST CRCL DRUG DOSING (CG) 27.96 mL/min; MAGNESIUM 2.5 mg/dL (1.8-2.4); PHOSPHORUS 6.3 mg/dL (2.5-4.9); POTASSIUM,K 4.3 mmol/L (3.6-5.2)
[2023-05-21 17:55] LABS: ANION GAP 16.3 mmol/L (5.0-14.0)
[2023-05-21 17:56] LABS: CREATININE 3.7 mg/dL (0.8-1.3); TROPONIN I HIGH SENSITIVITY 104.4 pg/mL (<=60.3)
[2023-05-21 18:12] LABS: INFLUENZA A NAA NEGATIVE (NEGATIVE); INFLUENZA B NAA NEGATIVE (NEGATIVE); RESPIRATORY SYNCYTIAL VIR NAA NEGATIVE (NEGATIVE)
[2023-05-21 18:19] LABS: CORONAVIRUS COVID-19 NAA POSITIVE (NEGATIVE)
[2023-05-21] MEDS: hydrALAZINE 20 MG/ML SDV IVPUSH ONE (18:37)
[2023-05-21 19:04] VITALS: BP 157/97; PULSE 103
[2023-05-21 21:43] LABS: EPITHELIAL CELLS,URINE RARE; RBC,URINE 0-5 (0-5); WBC,URINE 0-5 (0-5)
[2023-05-21 21:44] LABS: AMORPHOUS SEDIMENT,URINE NOT SEEN; BACTERIA,URINE NOT SEEN; MUCUS,URINE NOT SEEN
== END 2023-05-21 19:08 | disposition home or self-care (01) ==
LOC: JP.ED 16:08
DX: U07.1 COVID-19 (principal); I13.0 Hypertensive heart and chronic kidney disease with heart failure and stage 1 through stage 4 chronic kidney disease, or unspecified chronic kidney disease; I50.9 Heart failure, unspecified; N18.4 Chronic kidney disease, stage 4 (severe); E11.22 Type 2 diabetes mellitus with diabetic chronic kidney disease; N17.9 Acute kidney failure, unspecified; I25.10 Atherosclerotic heart disease of native coronary artery without angina pectoris; E21.3 Hyperparathyroidism, unspecified; E83.39 Other disorders of phosphorus metabolism; E83.41 Hypermagnesemia; Z95.810 Presence of automatic (implantable) cardiac defibrillator; Z90.3 Acquired absence of stomach [part of]; E11.40 Type 2 diabetes mellitus with diabetic neuropathy, unspecified; E66.9 Obesity, unspecified; Z86.16 Personal history of COVID-19; Z87.891 Personal history of nicotine dependence; Z79.899 Other long term (current) drug therapy; Z79.84 Long term (current) use of oral hypoglycemic drugs; Z68.29 Body mass index [BMI] 29.0-29.9, adult
CPT/HCPCS: 0241U; 36415; 71045; 80048; 81001; 83735; 83880; 84100; 84145; 84443; 84484; 85025; 93005; 96374; 99285; J0360; J3490

== ENCOUNTER 2024-01-12 14:06 | Emergency (ER) | payer OTHER ==
[2024-01-12 15:26] VITALS: BP 108/68; PULSE 72
[2024-01-12 16:34] LABS: BASOPHILS ABSOLUTE AUTO 0.03 K/uL (0.00-0.10); BASOPHILS PERCENT AUTO 0.2 % (0.1-1.3); EOSINOPHILS ABSOLUTE AUTO 0.04 K/uL (0.00-0.40); EOSINOPHILS PERCENT AUTO 0.3 % (0.0-5.4); HEMATOCRIT 24.9 % (38.4-49.7); HEMOGLOBIN 8.2 g/dL (12.9-16.9); IMMATURE GRAN ABSOLUTE AUTO 0.06 K/uL (0.00-0.23); IMMATURE GRAN PERCENT AUTO 0.5 % (0.0-0.7); LYMPHOCYTES ABSOLUTE AUTO 0.65 K/uL (0.8-3.3); LYMPHOCYTES PERCENT AUTO 5.2 % (11.4-47.7); MEAN CORPUSCULAR HEMOGLOBIN 27.2 pg (31.6-35.5); MEAN CORPUSCULAR HGB CONC 32.9 g/dL (31.6-35.5); MEAN CORPUSCULAR VOLUME 82.7 fL (81.4-99.0); MONOCYTES ABSOLUTE AUTO 0.71 K/uL (0.20-0.90); MONOCYTES PERCENT AUTO 5.7 % (3.3-12.6); NEUTROPHILS ABSOLUTE AUTO 10.94 K/uL (1.0-7.6); NEUTROPHILS PERCENT AUTO 88.1 % (40.0-78.1); PLATELET COUNT,PLT 452 K/uL (130-375); RED BLOOD CELL COUNT 3.01 M/uL (4.14-5.76); WHITE BLOOD CELL COUNT,WBC 12.4 K/uL (3.2-11.0)
[2024-01-12 16:55] LABS: A/G RATIO 0.3 (1.2-2.2); ALANINE AMINOTRANSFERASE,ALT 24 U/L (12-78); ALBUMIN 1.5 g/dL (3.4-5.0); ALKALINE PHOSPHATASE 167 U/L (46-116); ASPARTATE AMNIOTRANSFERASE,AST 14 U/L (15-37); BILIRUBIN TOTAL 0.4 mg/dL (0.2-1.0); C-REACTIVE PROTEIN 5.39 mg/dL (<0.50); CALCIUM 7.8 mg/dL (8.5-10.1); CARBON DIOXIDE,CO2 25 mmol/L (21-32); CHLORIDE,CL 103 mmol/L (100-108); EST CRCL DRUG DOSING (CG) 13.84 mL/min; ESTIMATED GFR 9 mL/min (>60); GLUCOSE RANDOM 166 mg/dL (74-106); POTASSIUM,K 3.5 mmol/L (3.6-5.2); PROTEIN TOTAL,TP 6.1 g/dL (6.4-8.2); SODIUM,NA 140 mmol/L (140-148)
[2024-01-12 16:57] LABS: ANION GAP 15.5 mmol/L (5.0-14.0)
[2024-01-12 16:58] LABS: BLOOD UREA NITROGEN,BUN 89 mg/dL (7-18); CREATININE 7.4 mg/dL (0.8-1.3)
[2024-01-12 17:13] LABS: LACTIC ACID 1.5 mmol/L (0.4-2.0)
[2024-01-12] MEDS: Acetaminophen/HYDROcodone 325-5 MG Tab PO ONE (22:18)
[2024-01-12] MEDS: cefTRIAXone 1 GM, Lidocaine 1% 2.1 ML IM ONE (22:18)
== END 2024-01-12 22:38 | disposition home or self-care (01) ==
LOC: JP.ED 14:06
DX: L03.116 Cellulitis of left lower limb (principal); I11.0 Hypertensive heart disease with heart failure; I50.9 Heart failure, unspecified; I25.10 Atherosclerotic heart disease of native coronary artery without angina pectoris; E78.00 Pure hypercholesterolemia, unspecified; E11.40 Type 2 diabetes mellitus with diabetic neuropathy, unspecified; E66.9 Obesity, unspecified; Z86.16 Personal history of COVID-19; Z79.899 Other long term (current) drug therapy; Z79.4 Long term (current) use of insulin; Z95.0 Presence of cardiac pacemaker; Z68.27 Body mass index [BMI] 27.0-27.9, adult
CPT/HCPCS: 36415; 80053; 83605; 85025; 85379; 86140; 87635; 93971; 96372; 99285; A9270; J0696; U0002

== ENCOUNTER 2024-02-21 11:27 | Emergency (ER) | payer OTHER ==
[2024-02-21 12:32] LABS: BASOPHILS ABSOLUTE AUTO 0.04 K/uL (0.00-0.10); BASOPHILS PERCENT AUTO 0.7 % (0.1-1.3); EOSINOPHILS ABSOLUTE AUTO 0.05 K/uL (0.00-0.40); EOSINOPHILS PERCENT AUTO 0.9 % (0.0-5.4); HEMATOCRIT 26.3 % (38.4-49.7); HEMOGLOBIN 8.3 g/dL (12.9-16.9); IMMATURE GRAN PERCENT AUTO 0.2 % (0.0-0.7); LYMPHOCYTES ABSOLUTE AUTO 0.73 K/uL (0.8-3.3); LYMPHOCYTES PERCENT AUTO 12.9 % (11.4-47.7); MEAN CORPUSCULAR HEMOGLOBIN 27.4 pg (31.6-35.5); MEAN CORPUSCULAR HGB CONC 31.6 g/dL (31.6-35.5); MEAN CORPUSCULAR VOLUME 86.8 fL (81.4-99.0); MONOCYTES PERCENT AUTO 8.8 % (3.3-12.6); NEUTROPHILS ABSOLUTE AUTO 4.35 K/uL (1.0-7.6); NEUTROPHILS PERCENT AUTO 76.5 % (40.0-78.1); PLATELET COUNT,PLT 194 K/uL (130-375); RED BLOOD CELL COUNT 3.03 M/uL (4.14-5.76); WHITE BLOOD CELL COUNT,WBC 5.7 K/uL (3.2-11.0)
[2024-02-21 12:39] LABS: IMMATURE GRAN ABSOLUTE AUTO 0.01 K/uL (0.00-0.23)
[2024-02-21 12:51] LABS: CALCIUM 8.1 mg/dL (8.5-10.1); EST CRCL DRUG DOSING (CG) 21.33 mL/min; POTASSIUM,K 3.4 mmol/L (3.6-5.2)
[2024-02-21 12:53] LABS: ANION GAP 15.4 mmol/L (5.0-14.0)
[2024-02-21 12:55] LABS: CREATININE 4.8 mg/dL (0.8-1.3)
[2024-02-21] MEDS ORDERED: 50% Dextrose in Water 50 ML Syringe IVPUSH ONE (12:56)
[2024-02-21] MEDS: Dextrose 10% in Water 100 ML IV SCH (13:11)
[2024-02-21 13:32] LABS: LYME AB IgG Negative (Negative); LYME AB IgM Negative (Negative)
[2024-02-21 13:58] VITALS: BP 124/76; PULSE 74
== END 2024-02-21 14:13 | disposition home or self-care (01) ==
LOC: JP.ED 11:27
DX: I13.2 Hypertensive heart and chronic kidney disease with heart failure and with stage 5 chronic kidney disease, or end stage renal disease (principal); I50.9 Heart failure, unspecified; N18.6 End stage renal disease; I25.10 Atherosclerotic heart disease of native coronary artery without angina pectoris; E78.00 Pure hypercholesterolemia, unspecified; K21.9 Gastro-esophageal reflux disease without esophagitis; E11.649 Type 2 diabetes mellitus with hypoglycemia without coma; E11.22 Type 2 diabetes mellitus with diabetic chronic kidney disease; Z99.2 Dependence on renal dialysis; Z86.16 Personal history of COVID-19; Z79.01 Long term (current) use of anticoagulants; Z79.899 Other long term (current) drug therapy; Z79.84 Long term (current) use of oral hypoglycemic drugs; Z79.4 Long term (current) use of insulin
CPT/HCPCS: 36415; 80048; 82947; 83605; 83880; 84145; 84484; 85025; 86618; 87468; 87469; 87484; 87798; 93005; 99283